=== PATIENT | female | born 1960 | race Caucasian/White ===

== ENCOUNTER → 2018-09-06 | Outpatient (CLI) | payer OTHER ==
[2018-09-06 08:14] VITALS: BP 135/81; PULSE 85; RESP 16; TEMP 94.4; BMI 29.4
--- NOTE | 2018-09-06 10:01 | P.GSHP ---
History of Present Illness H&P Date: 09/06/18 Chief Complaint: right breast cancer Latia is a 57-year-old white female who had a routine screening mammogram performed in July 2018 at [facility] [place]. On the mammogram she was noted to have spiculated 1.5 cm area in the upper outer quadrant of the right breast. This was confirmed by ultrasound and a core biopsy was obtained which revealed invasive ductal carcinoma. This is noted to be ER/PA positive and HER- 2 negative. The patient states she was unable to feel anything in this area. She has no history of any trauma to the breast and no history of any infection of the breast. The patient did have a left breast biopsy in the past which was negative for cancer and revealed scar tissue. Family history: none Hormonal History: menarche: 11 : 1, 1 child, age at 14, breast fed: yes menopause: 48 BCP: none hormones: 3 months progesterone no estrogen Past Surgical History: 1. left breast biopsy Past Medical History: 1. hypothyroid Social History: smoke: none alcohol: none drugs: none - Constitutional Constitutional: Denies chills, Denies fever - EENT Eyes: denies blurred vision, denies pain Ears: deny: decreased hearing, tinnitus Ears, nose, mouth and throat: Denies headache, Denies sore throat - Breasts Breasts: bilateral: as per HPI - Cardiovascular Cardiovascular: Denies chest pain, Denies shortness of breath - Respiratory Respiratory: Denies cough, Denies 7 - Gastrointestinal Gastrointestinal: Denies abdominal pain, Denies diarrhea, Denies nausea, Denies vomiting - Genitourinary (Female) Genitourinary: Denies dysuria, Denies hematuria - Menstruation Menstruation: Reports postmenopausal - Musculoskeletal Musculoskeletal: Denies myalgias - Integumentary Integumentary: Denies pruritus, Denies rash - Neurological Neurological: Denies numbness, Denies weakness - Psychiatric Psychiatric: Denies anxiety, Denies depression - Endocrine Comment: hypothyroid - Hematologic/Lymphatic Comment: fish oil and vitamen E - Allergic/Immunologic Comment: none Past Medical History History of Any Multi-Drug Resistant Organisms: None Reported Past Surgical History: Breast Surgery Smoking Status: Never smoker Medications and Allergies Home Medications Medication Instructions Recorded Confirmed Type Ascorbic Acid [Vitamin C] 1,000 mg PO DAILY 09/06/18 09/06/18 History Calcium Carbonate [Calcium] 600 mg PO DAILY 09/06/18 09/06/18 History Cholecalciferol [Vitamin D3] 1,000 unit PO DAILY 09/06/18 09/06/18 History Folic Acid 0.4 mg PO DAILY 09/06/18 09/06/18 History Glucosamine/MSM/Chrond/D3/Bosw 1 each PO DAILY 09/06/18 09/06/18 History [Zjlpscfvpsf-Wkswfy-UXE-D3 Cplt] L.acidoph,Paracasei, B.lactis 1 each PO DAILY 09/06/18 09/06/18 History [Probiotic] Levothyroxine Sodium 112 mcg PO DAILY 09/06/18 09/06/18 History Multivitamin [Multivitamins Adult 1 each PO DAILY 09/06/18 09/06/18 History Gummies] [place]-3 Fatty Acids/Fish Oil [Fish 1 each PO DAILY 09/06/18 09/06/18 History Oil 1,000 mg Softgel] Ubidecarenone [Co Q-10] 100 mg PO DAILY 09/06/18 09/06/18 History Vitamin E 1,000 unit PO ONCE 09/06/18 09/06/18 History Surgical - Exam Vital Signs Temp Pulse Resp BP Pulse Ox 94.4 F L 85 16 135/81 98 09/06/18 07:57 09/06/18 07:57 09/06/18 07:57 09/06/18 07:57 09/06/18 07:57 BMI 29.4 - General well developed, well nourished, no distress - Eyes normal ocular movement, no icteric - ENT no hearing loss, no congestion - Neck no masses, trachea midline - Respiratory normal respiratory effort, clear to auscultation - Cardiovascular Rhythm: regular Heart Sounds: normal: S1, S2 - Abdomen Abdomen: soft, non tender, no guarding, no rigid, no rebound - Integumentary normal turger no rash - Neurologic no disoriented, no combative - Musculoskeletal normal gait, normal posture - Psychiatric oriented to time, oriented to person, oriented to place, speech is normal, memory intact The patient is a breast examination her breasts are doubled the Right breast: Multi-positional exam no dominant masses or nodules of concern, fibrocystic changes Right axilla: No adenopathy of concern Left breast: Multi-positional exam no dominant masses or nodules of concern Left axilla: No adenopathy of concern Results Mammogram results reviewed Pathology results reviewed Assessment and Plan Assessment: Impression: 1. Right breast cancer, T1 N0 M0 ER positive PA positive HER-2/isaías negative grade 1 2. Hypothyroid Plan: 1. Right breast needle localization and lumpectomy, sentinel node biopsy, possible axillary node dissection 2. Medical management of medical problems Risk and benefits of the procedure were discussed with the patient. Surgical options including lumpectomy with radiation therapy, sentinel node biopsy possible axillary node dissection, mastectomy plus or minus reconstruction were discussed with the patient and her friend. The patient wished to proceed with a lumpectomy, sentinel node biopsy and possible axillary node dissection. She understands she will be recommended to undergo radiation therapy following the lumpectomy. The risks and benefits of the procedure were discussed with the patient including bleeding and infection reaction to the anesthetic. The risk of a positive margin requiring reexcision was also discussed. The risk of a positive sentinel node on permanent section requiring more therapy was discussed as well. The patient understands and wishes to proceed with the operative intervention. This will be scheduled in the near future. Cc: Dr. Noguera,
== END ==
LOC: WWCWWP 07:36
PROVIDERS: ATTEND Surgery
DX: Z53.9 Procedure and treatment not carried out, unspecified reason (principal)

== ENCOUNTER 2018-10-09 08:17 | Observation (INO) | payer OTHER ==
[2018-10-05 09:31] VITALS: BMI 28.6
[~2018-10-09 08:17] MED LIST: ALPRAZolam 0.5 MG TAB PO PRN; DEXAMETHASONE SOD PHOSPHATE 10 MG/ML 1 ML VIAL IV ONE; HEPARIN SODIUM,PORCINE 5,000 UNIT/ML 1 ML VIAL SQ ONE; MORPHINE SULFATE 4 MG/ML SYRINGE IV PRN; ONDANSETRON 4 MG/2 ML VIAL IVP ONE; ONDANSETRON 4 MG/2 ML VIAL IVP PRN
[2018-10-09] MEDS ORDERED: LIDOCAINE 1% 20 ML VIAL (10MG/ML) FOR IV START INTRADERMA ONE (09:09)
[2018-10-09] MEDS ORDERED: LACTATED RINGERS 1,000 ML IV ONE ×2 (09:18→14:01)
[2018-10-09] MEDS ORDERED: LIDOCAINE 1% INJ 10MG/ML (20 ML MDV) SQ ONE (10:26)
[2018-10-09] MEDS ORDERED: SODIUM BICARB 4% 5 ML VIAL (0.48 MEQ/ML) MISCELLANE ONE (10:26)
[2018-10-09] MEDS ORDERED: fentaNYL (PF) 50 MCG/ML 2 ML AMP ONE (11:47)
[2018-10-09] MEDS ORDERED: LIDOCAINE 1% INJ 10MG/ML (20 ML MDV) ONE (11:47)
[2018-10-09] MEDS ORDERED: ePHEDrine SULFATE/0.9% NACL/PF 50 MG/5 ML SYRINGE IV ONE (11:47)
[2018-10-09] MEDS ORDERED: MIDAZOLAM 2 MG/2 ML VIAL ONE (11:47)
[2018-10-09] MEDS ORDERED: PROPOFOL 10 MG/ML 20 ML VIAL IV ONE (11:47)
--- NOTE | 2018-10-09 12:13 | NM ---
EXAMINATION TYPE: NM sentinel node injection DATE OF EXAM: 10/09/2018 COMPARISON: 08/20/2018 and needle localization same day HISTORY: 57-year-old female with biopsy-proven right breast cancer TECHNIQUE AND FINDINGS: The procedure of sentinel lymph node injection was explained to the patient. The benefits, alternatives, and risks were discussed. An informed consent was then obtained. Overlying skin is cleaned with sterile alcohol. Lidocaine buffered with bicarbonate was used as anes thetic into the skin and subcutaneous tissue surrounding the nipple. Following this, 44 uCi Tc 99m T ilmanocept was injected surrounding the outer aspect of the right nipple intradermally. The patient tolerated the procedure well without any immediate complication. The patient was kept in the radiology department for short stay after the procedure and then taken to surgery for surgical p rocedure what is presumed intraoperative gamma probe will be used for sentinel lymph node detection. IMPRESSION: Right breast radiotracer injection for sentinel node localization as above.
[2018-10-09] MEDS ORDERED: LIDOCAINE (PF) 10 MG/ML 2 ML VIAL SQ ONE ×2 (12:14)
[2018-10-09] MEDS ORDERED: HEPARIN SODIUM,PORCINE 5,000 UNIT/ML 1 ML VIAL SQ ONE (12:18)
--- NOTE | 2018-10-09 12:18 | P.NAPBC ---
NAPBC Queries - NAPBC Queries Was patient's case review presented at [facility] tumor board? If no, comment.: Yes Was patient's pathology reviewed at [facility]? If no, comment.: Yes Was breast conservation surgery offered? If no, comment.: Yes Was sentinel node biopsy offered? If no, comment.: Yes Was diagnosis confirmed by percutaneous core biopsy? If no, comment.: Yes If mastectomy patient, was a preop referral to a reconstructive surgeon offered? : Yes
[2018-10-09] MEDS ORDERED: CALCIUM CARBONATE 500 MG CHEWABLE PO PRN (15:18)
[2018-10-09] MEDS ORDERED: ONDANSETRON 4 MG/2 ML VIAL IVP PRN (15:18)
[2018-10-09] MEDS ORDERED: NALOXONE 0.4 MG/ML 1 ML VIAL IV PRN (15:18)
[2018-10-09] MEDS ORDERED: HYDROmorphone 1 MG/ML 1 ML SYRINGE IV PRN (15:18)
--- NOTE | 2018-10-09 15:18 | P.OP ---
Date of Procedure: 10/09/18 Preoperative Diagnosis: Right breast cancer Postoperative Diagnosis: Right breast cancer Procedure(s) Performed: Right breast lumpectomy, methylene blue injection for sentinel node biopsy, axillary exploration with node biopsy Implants: biozorb Anesthesia: GETA Surgeon: She Regan Estimated Blood Loss (ml): 10 IV fluids (ml): 800 Pathology: other (Right breast, right axillary contents) Condition: stable Disposition: PACU Indications for Procedure: Right breast cancer Operative Findings: Right breast dense tissue, right axilla no sentinel node identified by radioactivity or methylene blue, palpable nodes noted removed and sent for frozen section Description of Procedure: Latia is a 57-year-old white female who was diagnosed with a right breast invasive ductal carcinoma on core biopsy. She opted for a lumpectomy and sentinel node biopsy possible axillary node dissection. The patient was first seen in the radiology department where needle localization of area of concern in the right breast was performed, and periareolar radioactive tracer injection was performed. The patient was brought to the operating room and following induction of anesthesia the axilla was interrogated with the neoprobe. No evidence of radioactivity was identified. Therefore 5 mL of half- strength methylene blue was injected in the periareolar area and the breast was massaged for 3 minutes. The right breast and axilla were prepped and draped in a sterile fashion. An incision was made in the right breast and carried down to the shaft of the localizing needle. Wide excision of the tissue was performed. The specimen was painted for orientation. It was radiographed and confirmation that the area of concern was removed was obtained. Prior to sending the specimen to pathology it was palpated there was concern in the anterior margin may be close so additional tissue was taken anteriorly. Posteriorly the dissection was performed onto the pectoralis major muscle. The wound was evaluated for hemostasis. After we were assured hemostasis was attained it was measured for BioSorb placement. A 3 x 3 piles are was chosen. This was placed and secured in place using a 3-0 Vicryl suture. The tissues were then closed using 3-0 Vicryl suture. The skin was closed using a 4-0 Monocryl. Following this all instruments were changed and the area of the axilla was approached. Again the neoprobe was placed in the area of the axilla and no specific area of increased radioactive activity was identified. Small incision was made and carried down to the area of the pectoralis major muscle. Following this inferiorly the axillary area was entered. No blue or radioactive lymph node was identified. The incision was enlarged to more clearly evaluate the axilla. Upon doing so a palpable node was identified which was approximately 1 cm in size. No other nodes of concern were identified. The node was removed and sent for frozen section evaluation which was benign. The tissues from the area of the axillary vein inferiorly were palpated and no suspicious nodes were noted. Intraoperative consultation with medical oncology was obtained and discussion was entertained as to whether completion dissection of the axilla versus nonaggressive dissection should be performed.. After discussion with medical oncology the consensus was that we should not do a formal completion dissection. Some of the superficial tissues from the axilla had already been removed however continued deep dissection was not performed. After we were assured that hemostasis was attained a JEFRY drain was placed. The deep tissues were closed with a 3-0 Vicryl suture. The skin was closed with 4-0 Monocryl. All instrument and sponge counts were correct at the end of the case. The patient tolerated the procedure in stable condition.
[2018-10-09] MEDS: HYDROmorphone 0.5 MG/0.5 ML SYRINGE IVP PRN ×2 (15:40→15:45)
[2018-10-09] MEDS: HEPARIN SODIUM,PORCINE 5,000 UNIT/ML 1 ML VIAL SQ SCH (17:03)
[2018-10-09] MEDS: LACTATED RINGERS 1,000 ML IV SCH (17:03)
[2018-10-09] MEDS: SODIUM CHLORIDE 0.45% 1,000 ML IV SCH (17:07)
--- NOTE | 2018-10-09 19:08 | MM ---
EXAMINATION TYPE: MG pre op needle loc RT, MG surgical specimen RT DATE OF EXAM: 10/09/2018 COMPARISON: 08/20/2018 and 08/13/2013 CLINICAL HISTORY: 57-year-old female with biopsy-proven right breast cancer referred for needle local ization and excision TECHNIQUE: Needle localization with wire placement and surgical excision of area of concern in the [facility] breast. FINDINGS: The procedure of needle localization with wire placement and than surgical excision was exp lained to the patient. Benefits, alternatives, and risks were discussed. An informed consent was th en obtained. The shortest pathway for procedure was chosen. Shortest pathway was a lateral approach. The overlyin g skin was prepped and draped in usual sterile fashion. Lidocaine buffered with bicarbonate was used as anesthetic into the skin and subcutaneous tissue up to the level of area of concern. A 7 cm need le was used. It was placed via a lateral approach under mammographic guidance. Subsequent 90 degree s mammogram show the needle to be in satisfactory position relative to the targeted area. At this po int, wire was placed and the needle was withdrawn. The wire was fixed to patient's skin. Images wer e marked for surgeon. The patient tolerated the procedure well without any immediate complication. The patient was kept in the radiology department for short stay after the procedure and then taken to surgery for surgical e xcision. The clip, wire, and spiculated asymmetry are identified in specimen mammogram. The patient was kept in hospital for short stay after the procedure and then discharged home in stable condition . IMPRESSION: Successful, uncomplicated needle localization with wire placement and surgical excision o f biopsy-proven right breast carcinoma. Full pathology results to follow.
[2018-10-09 20:21] VITALS: RESP 16; TEMP 98.9
[2018-10-09 21:26] VITALS: BP 115/79; PULSE 90
[2018-10-10] MEDS ORDERED: HEPARIN SODIUM,PORCINE 5,000 UNIT/ML 1 ML VIAL ONE (00:40)
[2018-10-10] MEDS: HEPARIN SODIUM,PORCINE 5,000 UNIT/ML 1 ML VIAL SQ SCH ×2 (04:38→09:31)
[2018-10-10] MEDS: HYDROcodone/APAP 5-325MG 1 EACH TAB PO PRN ×2 (05:26→10:18)
[2018-10-10] MEDS: LACTATED RINGERS 1,000 ML IV SCH (10:16)
[2018-10-10] MEDS: SODIUM CHLORIDE 0.45% 1,000 ML IV SCH (10:17)
--- NOTE | 2018-10-10 12:22 | P.PN ---
Subjective Progress Note Date: 10/10/18 Postop day #1 right breast lumpectomy, axillary node exploration, axillary node biopsy Latia is a 57-year-old white female who is status post right breast lumpectomy and axillary exploration with a node biopsy. The axilla did not have any radioactivity nor blue dye which traveled to a specific sentinel node and therefore the axilla was explored and a palpable node was identified. This was sent for frozen section evaluation which was negative for malignancy. Intraoperative consultation with medical oncology was obtained and it was decided not to proceed with a formal axillary dissection is no other adenopathy appeared to be suspicious. Despite this superficial tissue was also removed which will most likely contain lymph nodes. A Don-Ricardo drain was placed in the axilla. The patient was admitted for pain control and close surveillance. This morning the patient is doing well with no complaints. The drainage from the JEFRY is approximately 10 mL and is serosanguineous. The patient is pain is well controlled at this time. She is tolerating her diet without difficulty. Objective - Vital Signs Vital signs: Vital Signs Temp 98.9 F 10/09/18 20:20 Pulse 90 10/09/18 21:00 Resp 16 10/10/18 00:40 BP 115/79 10/09/18 21:00 Pulse Ox 96 10/09/18 20:20 Intake & Output 10/09/18 10/10/18 10/10/18 18:59 06:59 18:59 Intake Total 1300 1825 Output Total 10 Balance 1290 1825 Weight 75.75 kg Intake: IV 1300 Intake, IV Titration 1300 Amount Sodium Chloride 0.45% 1, 1300 000 ml @ 100 mls/hr IV . Q10H OLESYA Rx#:[id number] Oral 525 Output: Estimated Blood Loss 10 Other: # Voids 2 - Constitutional General appearance: Present: average body habitus, cooperative - EENT Eyes: Present: EOMI ENT: Present: hearing grossly normal - Neck Neck: Present: normal ROM - Respiratory Respiratory: bilateral: CTA - Cardiovascular Rhythm: regular Heart sounds: normal: S1, S2 - Integumentary Integumentary Comment(s): The patient's dressings are removed. Both the axillary and breast incisions are clean and dry with no evidence of infection There is some mild blue discoloration of breast secondary to the methylene blue injection with no evidence of any infection JEFRY output is serous in nature Assessment and Plan Assessment: Impression: 1. Postop day #1 axillary exploration, lumpectomy 2. Patient's pain is well-controlled 3. No evidence of infection 4. Axillary drainage serous in nature Plan: 1. Teach patient's family drain care 2. Discharge home to be followed by Dr. Whyte in 2 days for probable drain removal 3. Postoperative appointments with medical and radiation oncology
--- NOTE | 2018-10-10 12:25 | P.DS ---
Providers Date of admission: 10/09/18 20:58 Attending physician: She Regan Primary care physician: Physician Nonstaff Plan - Discharge Summary Discharge Rx Participant: Yes New Discharge Prescriptions: No Action Folic Acid 0.4 mg PO DAILY Ubidecarenone [Co Q-10] 100 mg PO DAILY Multivitamin [Multivitamins Adult Gummies] 1 each PO DAILY Levothyroxine Sodium 112 mcg PO DAILY L.acidoph,Paracasei, B.lactis [Probiotic] 1 each PO DAILY Glucosamine/MSM/Chrond/D3/Bosw [Nnngviyvblx-Zxhmaf-SUS-D3 Cplt] 1 each PO DAILY Vitamin E 1,000 unit PO DAILY Cholecalciferol [Vitamin D3] 1,000 unit PO DAILY [place]-3 Fatty Acids/Fish Oil [Fish Oil 1,000 mg Softgel] 1 each PO DAILY Ascorbic Acid [Vitamin C] 1,000 mg PO DAILY Calcium Carbonate [Calcium] 600 mg PO DAILY Discharge Medication List Ascorbic Acid [Vitamin C] 1,000 mg PO DAILY 09/06/18 [History] Calcium Carbonate [Calcium] 600 mg PO DAILY 09/06/18 [History] Cholecalciferol [Vitamin D3] 1,000 unit PO DAILY 09/06/18 [History] Folic Acid 0.4 mg PO DAILY 09/06/18 [History] Glucosamine/MSM/Chrond/D3/Bosw [Hbxcbxmjbxp-Gafeqd-WHB-D3 Cplt] 1 each PO DAILY 09/06/18 [History] L.acidoph,Paracasei, B.lactis [Probiotic] 1 each PO DAILY 09/06/18 [History] Levothyroxine Sodium 112 mcg PO DAILY 09/06/18 [History] Multivitamin [Multivitamins Adult Gummies] 1 each PO DAILY 09/06/18 [History] [place]-3 Fatty Acids/Fish Oil [Fish Oil 1,000 mg Softgel] 1 each PO DAILY [History] Ubidecarenone [Co Q-10] 100 mg PO DAILY 09/06/18 [History] Vitamin E 1,000 unit PO DAILY 09/06/18 [History] Follow up Appointment(s)/Referral(s): She Regan MD [STAFF PHYSICIAN] - 1-2 Days Activity/Diet/Wound Care/Special Instructions: Teaching family drain care, drain and record JEFRY output twice a day and as needed Patient may shower after [address] until seen by Dr. Whyte Discharge Disposition: HOME SELF-CARE
== END 2018-10-10 14:39 | disposition home or self-care (01) ==
LOC: OR 08:17 → 4SSUR 15:25 → OR 21:20
PROVIDERS: ADMIT Surgery; ATTEND Surgery
DX: C50.411 Malignant neoplasm of upper-outer quadrant of right female breast (principal)
CPT/HCPCS: 19301; 38525; 88342; 88331; 88307; 88341; 76098; 19281; 38792; G0378 ×2; A4648; A9520; J2250; J2001 ×2; J1644 ×2; J1100; J2405; J3010; J2704; J1170

== ENCOUNTER → 2018-10-12 | Outpatient (CLI) | payer OTHER ==
[2018-10-12 16:06] VITALS: BP 155/88; PULSE 83; RESP 18; TEMP 97.9; BMI 28.6
--- NOTE | 2018-10-12 16:18 | P.PN ---
Progress Note - Text Progress Note Date: 10/12/18 Latia is status post right breast lumpectomy and axillary exploration on . She comes in today for possible removal and of her JEFRY drain. She has no complaints at this time. JEFRY output is been minimal and is serous in nature. Physical exam: lungs: Clear Heart: Regular rate and rhythm Incision: Breast and axilla clean and dry Impression: Patient doing well postop day #3 lumpectomy and axillary exploration /sampling Plan: 1. Follow up next week
== END ==
LOC: WWCWWP 15:31
PROVIDERS: ATTEND Surgery
DX: Z53.9 Procedure and treatment not carried out, unspecified reason (principal)

== ENCOUNTER → 2018-10-18 | Outpatient (CLI) | payer OTHER ==
[2018-10-18 15:40] VITALS: BP 134/67; PULSE 87; RESP 16; TEMP 97.5; BMI 28.8
--- NOTE | 2018-10-18 16:08 | P.PN ---
Subjective Progress Note Date: 10/18/18 Principal diagnosis: right breast cancer Latia is a 57-year-old white female with a T1 N0 M0 grade 1 ER positive NE positive HER-2/isaías negative right breast cancer. The patient underwent a right breast lumpectomy and axillary node biopsy. On the lumpectomy specimen the pathology revealed that the margins were clear for invasive ductal carcinoma. DCIS was within 1.6 mm focally at the blue-green inked margin. Additional anterior margin had been taken was negative for cancer or carcinoma in situ. The patient has no complaints related to the surgery. Objective - Vital Signs Vital signs: Vital Signs Temp 97.5 F L 10/18/18 15:32 Pulse 87 10/18/18 15:32 Resp 16 10/18/18 15:32 BP 134/67 10/18/18 15:32 Pulse Ox Intake & Output 10/17/18 10/18/18 10/18/18 18:59 06:59 18:59 Weight 76.204 kg - Constitutional General appearance: Present: average body habitus - EENT Eyes: Present: EOMI ENT: Present: hearing grossly normal - Respiratory Respiratory: bilateral: CTA - Cardiovascular Rhythm: regular - Integumentary Integumentary Comment(s): Incision clean and dry right breast Incision clean and dry right axilla Assessment and Plan Assessment: Impression: 1. Patient status post right breast lumpectomy with axillary node sampling 2. Patient doing well with no complaints Plan: 1. Represent case at tumor board is DCIS was within 1.6 mm focally of anterior/ inferior margin, please note Anterior margin was obtained with no invasive or ductal carcinoma in situ present 2. appointment with medical oncology 3. Appointment with radiation oncology 4. Follow up here in 3 months Cc: Dr. Noguera, Dr. Salazar
== END ==
LOC: WWCWWP 15:23
PROVIDERS: ATTEND Surgery
DX: Z53.9 Procedure and treatment not carried out, unspecified reason (principal)

== ENCOUNTER → 2019-01-10 | Outpatient (CLI) | payer OTHER ==
[2019-01-10 11:02] VITALS: BP 138/86; PULSE 74; RESP 16; TEMP 97.9; BMI 28.8
--- NOTE | 2019-01-10 11:15 | P.PN ---
Subjective Progress Note Date: 01/10/19 Principal diagnosis: right breast cancer Latia is a 57-year-old white female who is status post right breast lumpectomy with axillary node biopsy on 1818. This was 4 at T1 and 0 M0 ER positive. A positive HER-2/isaías negative grade 1 breast cancer. There was an invasive ductal carcinoma. The patient has finished her radiation therapy and has recently started anastrozole. She has some intermittent shooting discomfort in her breast but this isn't not last for any period of time. She has no other complaints at this time. Her Oncotype DX was 15 and she was told that she did not need any chemotherapy. The patient's last mammogram was admitted in August 2018. Family History: negative Hormonal history: Menarche: 11 Pregnancies: 1, 1 child, age of 14, breast fed: Yes Menopause: 48 control pills: Negative Hormones: 3 months progesterone never used estrogen is now on anastrozole Past surgical history: Left breast lumpectomy with axillary node biopsy Past medical history hypothyroidism Social history: Smoking: Negative Alcohol: Negative Drugs: Negative Review of systems: HEENT: Negative Lungs: Heart: Negative GI: Negative : Negative Musculoskeletal: Negative Psychiatric: Negative Breasts: As above Objective - Vital Signs Vital signs: Vital Signs Temp 97.9 F 01/10/19 10:58 Pulse 74 01/10/19 10:58 Resp 16 01/10/19 10:58 BP 138/86 01/10/19 10:58 Pulse Ox 97 01/10/19 10:58 - Constitutional General appearance: Present: average body habitus - EENT Eyes: Present: EOMI ENT: Present: hearing grossly normal - Neck Neck: Present: normal ROM - Respiratory Respiratory: bilateral: CTA - Cardiovascular Rhythm: regular Heart sounds: normal: S1, S2 - Gastrointestinal General gastrointestinal: Present: soft - Integumentary Integumentary: Present: normal turgor - Musculoskeletal Musculoskeletal: Present: gait normal - Psychiatric Psychiatric: Present: A&O x's 3, appropriate affect, intact judgment & insight - Additional findings Additional findings: breast exam: Right breast: Multi-positional exam no dominant masses or nodules of concern, fibrocystic changes, radiation changes of the skin and of the tissue, scar tissue related to prior lumpectomy, right slightly smaller than the left breast Right axilla: No adenopathy of concern incision clean and dry and well-healed Left breast: Multiple positional exam no dominant masses or nodules of concern, Left axilla: No adenopathy of concern Assessment and Plan Assessment: Impression: 1. Right breast stage IA breast cancer status post lumpectomy, sentinel node biopsy, radiation therapy 2. Patient presently on anastrozole 3. No evidence of recurrent disease 4. Skin changes related to radiation therapy 5. hypothyroid Plan: 1. Right breast mammogram 6 months from completion of radiation therapy which would be June 2. Continue anastrozole and follow with Dr. Noguera 3. Follow-up here in 4 months 4. Medical management of medical conditions Cc:
== END ==
LOC: WWCWWP 10:39
PROVIDERS: ATTEND Surgery
DX: Z53.9 Procedure and treatment not carried out, unspecified reason (principal)

== ENCOUNTER → 2019-07-04 | Outpatient (CLI) | payer OTHER ==
--- NOTE | 2019-07-04 10:18 | BD ---
EXAMINATION TYPE: Axial Bone Density DATE OF EXAM: 07/04/2019 COMPARISON: NONE CLINICAL HISTORY: N 95.1 Height: 63 Weight: 163.3 FRAX RISK QUESTIONS: Alcohol (3 or more units per day): no Family History (Parent hip fracture): no Glucocorticoids (More than 3mos): no (Ex: prednisone, prednisolone, methylprednisolone, dexamethasone, and hydrocortisone). History of Fracture in Adulthood: no Secondary Osteoporosis: 1. Type 1 Diabetes: no 2. Hyperthyroidism: no 3. Menopause before 45: no 4. Malnutrition: no 5. Chronic liver disease: no Rheumatoid Arthritis: no Current Tobacco Use: no RISK FACTORS HISTORY OF: Family History of Osteoporosis: yes Active: yes Diet low in dairy products/other sources of calcium: yes Postmenopausal woman: age 47 Lost more than 2 inches in height since high school: no MEDICATIONS: Arimidex, Thyroid Medications: levothyroxine How Lon years Additional History: breast cancer 2018/ radiation treatment EXAM MEASUREMENTS: Bone mineral densitometry was performed using the [employer] System. Bone mineral density as measured about the Lumbar spine is: ----- L1-L4(G/cm2): 1.371 T Score Values are as follows: ----- L2: 0.8 ----- L3: 2.8 ----- L4: 2.6 ----- L1-L4: 1.6 Bone mineral density : baseline Bone mineral density about the R hip (g/cm2): 1.089 Bone mineral density about the L hip (g/cm2): 1.060 T Score values are as follows: -----R Neck: 0.4 -----L Neck: 0.2 -----R Total: 1.1 -----L Total: 0.9 Bone mineral density : baseline IMPRESSION: Normal (Values between +1 and -1 indicate normal bone mass). Consider repeating this study in 5 year s or sooner if there is some new clinical indication. NOTE: T-SCORE=SD OF THE YOUNG ADULT MEAN.
== END | disposition home or self-care (01) ==
LOC: RADBDWWP 09:15
PROVIDERS: ATTEND Internal Medicine Hematology & Oncology
DX: C50.411 Malignant neoplasm of upper-outer quadrant of right female breast (principal); N95.1 Menopausal and female climacteric states
CPT/HCPCS: 77080

== ENCOUNTER → 2019-07-04 | Outpatient (CLI) | payer OTHER ==
--- NOTE | 2019-07-04 13:21 | MM ---
Reason for exam: additional evaluation requested from prior study. Last mammogram was performed 10 months ago. History: Patient is postmenopausal and has history of breast cancer at age 57. Malignant MG pre op needle loc RT of the right breast, October 09, 2018. Lumpectomy of the right breast, October 09, 2018. Physical Findings: Nurse did not find any significant physical abnormalities on exam. MG 3D Diag Mammo W/Cad ANGEL Bilateral CC, MLO, and XCCL view(s) were taken. Prior study comparison: August 20, 2018, mammogram. August 13, 2018, mammogram. July 21, 2018, mammogram. The breast tissue is extremely dense which could obscure a lesion on mammography. There are similar appearing bilateral calcifications. Post therapy change on the right. Left upper outer quadrant middle depth focal asymmetry, although improved from 2018, precautionary ultrasound will be performed. Left excisional known. These results were verbally communicated with the patient and result sheet given to the patient on 07/04/19. ASSESSMENT: Incomplete: need additional imaging evaluation, BI-RAD 0 RECOMMENDATION: Ultrasound of the left breast. (upper outer quadrant)
--- NOTE | 2019-07-04 13:28 | USB ---
Reason for exam: additional evaluation requested from abnormal screening. History: Patient is postmenopausal and has history of breast cancer at age 57. Malignant MG pre op needle loc RT of the right breast, October 09, 2018. Lumpectomy of the right breast, October 09, 2018. US Breast Limited LT Left limited breast ultrasound including focal area of concern, retroareolar and axilla demonstrates a 0.4 x 0.3 x 0.4cm cystic lesion at 12 o'clock, a 0.4 x 0.3 x 0.3cm likely small cyst in dense tissue at 3 o'clock and a 0.3 x 0.3 x 0.4cm lesion a 3 o'clock for which a biopsy is recommended. These results were verbally communicated with the patient and result sheet given to the patient on 07/04/19. ASSESSMENT: Suspicious, BI-RAD 4 RECOMMENDATION: Ultrasound core biopsy of the left breast. (3 o'clock) Called with mammographic findings and has scheduled an appointment for the patient for 07/18/19 at 2:[address] Regan. Biopsy scheduled for 07/10/19 at 2:00. PRELIMINARY REPORT CALLED AND FAXED TO DR. REGAN ON 07/04/19.
== END | disposition home or self-care (01) ==
LOC: RADMAMWWP 09:12
PROVIDERS: ATTEND Surgery
DX: Z08 Encounter for follow-up examination after completed treatment for malignant neoplasm (principal); Z85.3 Personal history of malignant neoplasm of breast
CPT/HCPCS: 77066; 76642; G0279; 77062

== ENCOUNTER → 2019-07-10 | Day surgery (SDC) | payer OTHER ==
[2019-07-10 13:30] VITALS: RESP 16; BMI 28.2
[2019-07-10 14:51] VITALS: BP 124/82; PULSE 87; TEMP 98.3
--- NOTE | 2019-07-10 15:03 | USB ---
EXAMINATION TYPE: US biopsy breast VAD LT, MG diagnostic mammo LT wo CAD DATE OF EXAM: 07/10/2019 CLINICAL HISTORY: R92.8 Abnormal Mammogram. TECHNIQUE: Ultrasound guided core biopsy of left breast. COMPARISON: Left breast ultrasound dated 07/04/2019 FINDINGS: The procedure of ultrasound guided core biopsy was explained to the patient. Benefits, alternatives, and risks were discussed. An informed consent was then obtained. Preprocedural timeout was performed. The patient was placed in supine positioning for imaging and for the procedure. The overlying skin was prepped and draped in usual sterile fashion. 10 cc of 1% lidocaine was used as anesthetic into the skin and subcutaneous tissue and 10 cc of 1% lidocaine with epinephrine was utilized to anesthetize the deeper subcutaneous tissues at the site of biopsy as there was an adjacent vessel that would be unavoidable given the small size of the mass. Lidocaine was given up to the 4 mm hypoechoic lesion at the 3:00 position in the left breast, which was sampled. Under ultrasound guidance, a 12-gauge vacuum assisted biopsy gun device was used to obtain 4 core samples. Following this, a coil-shaped biopsy marker was left at the site of biopsy. Biopsy marker appears appropriately placed on the post procedure mammogram. The patient tolerated the procedure well without any immediate complication. The patient was kept in the radiology department for short stay after the procedure and then discharged home in stable condition. IMPRESSION: Successful, uncomplicated ultrasound guided core biopsy of a 4 mm mass at the 3:00 position in the left breast, full pathology results to follow. Pathology Results: Benign LEFT BREAST AT THREE O'CLOCK POSITION, NEEDLE CORE BIOPSIES: Fragments of benign breast parenchyma showing fibrocystic changes. Recommendation Follow up mammogram and ultrasound of the left breast in 6 months. Mass was difficult to reproduce the day of biopsy and after identification appeared likely as a complicated cyst. MTDD
== END ==
LOC: RADUSWWP 13:13
PROVIDERS: ATTEND Surgery
DX: N60.12 Diffuse cystic mastopathy of left breast (principal); R92.8 Other abnormal and inconclusive findings on diagnostic imaging of breast
CPT/HCPCS: 88305; 77065; 19083; A4648; J2001

== ENCOUNTER → 2019-07-18 | Outpatient (CLI) | payer OTHER ==
[2019-07-18 14:51] VITALS: BP 136/84; RESP 18; TEMP 98; BMI 28.8
--- NOTE | 2019-07-18 15:10 | P.PN ---
Subjective Progress Note Date: 07/18/19 Principal diagnosis: right breast cancer Latia is a 57-year-old white female who is status post right breast lumpectomy with axillary node biopsy on 1818. This was Stage 1A T1 N0 M0 ER positive, [place] positive HER-2/isaías negative grade 1 breast cancer. There was an invasive ductal carcinoma. The patient has finished her radiation therapy and has recently started anastrozole. She had some intermittent shooting discomfort in her breast but this is not present at this time. She has no other complaints at this time. Her Oncotype DX was 15 and she was told that she did not need any chemotherapy. The patient's last mammogram was on 07-04-19, after which was recommended she undergo an ultrasound of the left breast. This was performed in a 4 x 3 mm cystic lesion at 12:00 was noted. Additionally a 0.4 x 0.3 small cysts and dense tissue at 3:00 was noted, and a 0.3-0.4 lesion at 3:00 for which biopsy was recommended was noted. Ultrasound core biopsy at the 3:00 lesion was performed. Pathology was consistent with fibrocystic disease. The patient has no complaints following the biopsy. Family History: negative Hormonal history: Menarche: 11 Pregnancies: 1, 1 child, age of 14, breast fed: Yes Menopause: 48 control pills: Negative Hormones: 3 months progesterone never used estrogen is now on anastrozole Past surgical history: Left breast lumpectomy with axillary node biopsy Past medical history hypothyroidism Social history: Smoking: Negative Alcohol: Negative Drugs: Negative Review of systems: HEENT: Negative Lungs:none Heart: Negative GI: Negative : Negative Musculoskeletal: Negative Psychiatric: Negative Breasts: As above Patient is on anastrozole Objective - Vital Signs Vital signs: Vital Signs Temp 98.0 F 07/18/19 14:47 Pulse Resp 18 07/18/19 14:47 BP 136/84 07/18/19 14:47 Pulse Ox Intake & Output 07/17/19 07/18/19 07/18/19 18:59 06:59 18:59 Weight 73.936 kg - Exam BMI 28.9 - Constitutional General appearance: Present: average body habitus - EENT Eyes: Present: EOMI ENT: Present: hearing grossly normal - Neck Neck: Present: normal ROM - Respiratory Respiratory: bilateral: CTA - Cardiovascular Rhythm: regular Heart sounds: normal: S1, S2 - Gastrointestinal General gastrointestinal: Present: soft - Integumentary Integumentary: Present: normal turgor - Musculoskeletal Musculoskeletal: Present: gait normal - Psychiatric Psychiatric: Present: A&O x's 3, appropriate affect, intact judgment & insight - Additional findings Additional findings: breast exam: Right breast: Postop changes, multiple positional exam no dominant masses or nodules of concern, skin thickening related to radiation Right axilla: No adenopathy of concern Left breast: Multi-positional exam no dominant masses or nodules of concern, fibrocystic changes, we are area of the recent core biopsy site nodularity felt to be related to hematoma, mild ecchymosis Left axilla: No adenopathy of concern BRA size 36DD Right breast is approximately 25% smaller than the left breast, at times it makes it difficult for the patient to of fit in clothes Patient complains of lower back pain at times Assessment and Plan Assessment: Impression: 1. Patient status post right breast lumpectomy/radiation therapy for stage IA breast cancer 2. No evidence of recurrent cancer 3. Status post recent left breast ultrasound core biopsy benign 3. Asymmetry of the breast 4. Fibrocystic changes 5.hypothyroid 6. Ocular migraines Plan: 1. left breast mammogram and ultrasound in 6 months 2. physician exam in 4 months 3. bilateral mammogram in 2019 4. Medical management of medical conditions CC: DR. Latif
== END ==
LOC: WWCWWP 14:34
PROVIDERS: ATTEND Surgery
DX: Z53.9 Procedure and treatment not carried out, unspecified reason (principal)

== ENCOUNTER → 2020-06-30 | Outpatient (CLI) | payer OTHER ==
[2020-06-30 10:09] VITALS: BP 147/96; PULSE 78; RESP 18; TEMP 98
--- NOTE | 2020-06-30 11:02 | P.HPOB ---
History of Present Illness H&P Date: 06/30/20 Chief Complaint: The patient is here for her routine gynecologic exam. This is a 59-year-old with an LMP of 2009. The patient is here to establish with this office. It has been about 2 years since her last pelvic exam. She is without gynecologic complaints and denies any postmenopausal bleeding. Review of Systems She believes she has gained about 6 pounds over the past year. She denies respiratory, cardiac, or GI problems. Past Medical History Past Medical History: Cancer, Thyroid Disorder Additional Past Medical History / Comment(s): Right breast cancer 2018 status post lumpectomy and radiation therapy. Hypothyroidism. PAST [employer] HISTORY: She has no history of STDs. History of Any Multi-Drug Resistant Organisms: None Reported Past Surgical History: Breast Surgery Additional Past Surgical History / Comment(s): Right breast lumpectomy 2018. Benign left breast biopsy. Colonoscopy 2019(next after 5yr). Past Anesthesia/Blood Transfusion Reactions: No Reported Reaction Additional Past Anesthesia/Blood Transfusion Reaction / Comment(s): takes along time to awaken from anesthesia Past Psychological History: No Psychological Hx Reported Smoking Status: Never smoker Past Alcohol Use History: Rare (Less than one per year) Past Drug Use History: None Reported Additional History: She is and has been with her current partner since 2000 and a live together. She is sexually active. She does show dogs. - Past Family History Mother Additional Family Medical History / Comment(s): Heart disease. No family history of cancer of the breast, uterus, ovaries, or colon. Father Family Medical History: Hypertension Medications and Allergies Home Medications Medication Instructions Recorded Confirmed Type Ascorbic Acid [Vitamin C] 1,000 mg PO DAILY 09/06/18 06/30/20 History Calcium Carbonate [Calcium] 600 mg PO DAILY 09/06/18 06/30/20 History Cholecalciferol [Vitamin D3] 2,000 unit PO DAILY 09/06/18 06/30/20 History Folic Acid 0.4 mg PO DAILY 09/06/18 06/30/20 History Glucosamine/MSM/Chrond/D3/Bosw 1 each PO DAILY 09/06/18 06/30/20 History [Qovucebjhtv-Frkwlc-IMM-D3 Cplt] L.acidoph,Paracasei, B.lactis 1 each PO DAILY 09/06/18 06/30/20 History [Probiotic] Levothyroxine Sodium 112 mcg PO DAILY 09/06/18 06/30/20 History Multivitamin [Multivitamins Adult 1 each PO DAILY 09/06/18 06/30/20 History Gummies] [place]-3 Fatty Acids/Fish Oil [Fish 1 each PO DAILY 09/06/18 06/30/20 History Oil 1,000 mg Softgel] Ubidecarenone [Co Q-10] 100 mg PO DAILY 09/06/18 06/30/20 History Vitamin E 1,000 unit PO DAILY 09/06/18 06/30/20 History Anastrozole [Arimidex] 1 mg PO DAILY 01/10/19 06/30/20 History Allergies Allergy/AdvReac Type Severity Reaction Status Date / Time No Known Allergies Allergy Verified 06/30/20 10:04 Exam Vital Signs Temp Pulse Resp BP Pulse Ox 06/30/20 10:04 98.0 F 78 18 147/96 99 Intake and Output 06/29/20 06/30/20 06/30/20 22:59 06:59 14:59 Other: Weight 77.564 kg Height 5 feet 5 inches, weight 171 pounds, BMI 28.5. This is a well-developed well-nourished white female who is alert and oriented times 3 in no acute distress. HEENT: Within normal limits. NECK: Supple without mass or thyromegaly. CHEST AND LUNGS: Clear to auscultation. HEART: Regular rate and rhythm. BREASTS: Are without mass or discharge. There is a scar at the 10 o'clock position of the right breast consistent with her previous lumpectomy. This is well-healed. AXILLARY EXAM: Negative for adenopathy. BACK: Negative for CVA tenderness. ABDOMEN: Soft, nontender, without palpable masses. PELVIC EXAM: Normal external genitalia with mild atrophy. Cervix and vagina appear normal with mild atrophy. There is no unusual discharge. There is no evidence of prolapse. The uterus is midposition, nongravid size and nontender. There are no palpable adnexal masses or tenderness. RECTAL EXAM: Rectovaginal exam is negative for mass or tenderness and is negative for occult blood. EXTREMITIES: Nontender. IMPRESSION: 1. 59-year-old menopausal female with normal gynecologic exam. 2. History of right breast cancer status post lumpectomy and radiation therapy with no evidence of recurrence at this time. 3. Elevated blood pressure. PLAN: 1. Pap smear was performed. 2. Self breast awareness was discussed with the patient. 3. Mammogram as ordered by her oncologist is scheduled for 07/14/2020. She does have an order slip for this from her oncologist. 4. We have discussed her elevated blood pressure today. She does have the ability to check her own blood pressure at home. She will check her blood pressure on a regular basis and follow up with her PCP for blood pressure elevations. 5. Osteoporosis prevention was discussed. I have stressed the importance of adequate calcium, vitamin D and regular exercise. Recommended amounts of calcium and vitamin D were also discussed. Bone density testing was done on 07/04/2019 and was normal. She will repeat this in 5 years or as directed by her oncologist who ordered the last one. 6. She was advised to return in one year for her annual well woman exam.
--- NOTE | 2020-07-08 13:55 | P.PN ---
Progress Note - Text Progress Note Date: 07/08/20 OUTPATIENT FOLLOW-UP NOTE TEST(S)/RESULTS: Pap smear from 06/30/2020 was negative. METHOD OF NOTIFICATION: She was notified by phone. PATIENT COMMENTS: She is happy to hear this result. DIAGNOSIS: Negative Pap smear DISCUSSION: Mammogram will be done later this month. PLAN: She was advised to return in one year for her annual well woman exam.
== END | disposition home or self-care (01) ==
LOC: WWCWWP 09:49
PROVIDERS: ATTEND Obstetrics & Gynecology
DX: Z53.9 Procedure and treatment not carried out, unspecified reason (principal)

== ENCOUNTER → 2020-07-14 | Outpatient (CLI) | payer OTHER ==
--- NOTE | 2020-07-14 10:30 | MM ---
Reason for exam: additional evaluation requested from prior study. Last mammogram was performed 1 year ago. History: Patient is postmenopausal and has history of breast cancer at age 57. Benign US biopsy breast VAD LT of the left breast, July 10, 2019. Malignant MG pre op needle loc RT of the right breast, October 09, 2018. Lumpectomy of the right breast, October 09, 2018. Physical Findings: Nurse did not find any significant physical abnormalities on exam. MG 3D Diag Mammo W/Cad ANGEL Bilateral CC and MLO view(s) were taken. Prior study comparison: July 10, 2019, left breast MG diagnostic mammo LT wo CAD. July 04, 2019, bilateral MG 3d diag mammo w/cad ANGEL. The breast tissue is heterogeneously dense. This may lower the sensitivity of mammography. Stable benign calcifications. There is chronic nodularity bilaterally. Stable post lumpectomy changes right breast. No significant new findings when compared with previous films. These results were verbally communicated with the patient and result sheet given to the patient on 07/14/20. ASSESSMENT: Benign, BI-RAD 2 RECOMMENDATION: Follow-up diagnostic mammogram of both breasts in 1 year.
== END | disposition home or self-care (01) ==
LOC: RADMAMWWP 09:41
PROVIDERS: ATTEND Surgery
DX: Z08 Encounter for follow-up examination after completed treatment for malignant neoplasm (principal); Z85.3 Personal history of malignant neoplasm of breast
CPT/HCPCS: 77066; G0279; 77062

== ENCOUNTER → 2020-07-17 | Outpatient (CLI) | payer OTHER ==
[2020-07-17 10:11] VITALS: BP 131/86; PULSE 79; RESP 18; TEMP 97.9
--- NOTE | 2020-07-17 10:57 | P.PN ---
Subjective Progress Note Date: 07/17/20 Principal diagnosis: stage 1A right breast cancer surveillance Stage 1A right breast cancer surveillance right breast cancer Latia is a 59-year-old white female who is status post right breast lumpectomy with axillary node biopsy on 1818. This was Stage 1A T1 N0 M0 ER positive, [place] positive HER-2/isaías negative grade 1 breast cancer. There was an invasive ductal carcinoma. The patient finished her radiation therapy and started anastrozole. She is not complaining of any pain masses lumps or nodules in her breasts. She has no longer got any shooting pain in her breast. She has no other complaints at this time. Her Oncotype DX was 15 and she was told that she did not need any chemotherapy. The patient had a mammogram on 07-04-19, after which was recommended she undergo an ultrasound of the left breast. This was performed in a 4 x 3 mm cystic lesion at 12:00 was noted. Additionally a 0.4 x 0.3 small cysts and dense tissue at 3:00 was noted, and a 0.3-0.4 lesion at 3:00 for which biopsy was recommended was noted. Ultrasound core biopsy at the 3:00 lesion was performed. Pathology was consistent with fibrocystic disease. The patient had no complaints following the biopsy. She had a bilateral mammogram on 07-14-20 which was benign BIRAD 2. Patient notes she has asymmetry of the breast related to her prior right breast lumpectomy, making it difficult at times to find close to fit well. Family History: negative Hormonal history: Menarche: 11 Pregnancies: 1, 1 child, age of 14, breast fed: Yes Menopause: 48 control pills: Negative Hormones: 3 months progesterone never used estrogen is now on anastrozole Past surgical history: Left breast lumpectomy with axillary node biopsy core biopsy of hte left bresat benign Past medical history hypothyroidism Social history: Smoking: Negative Alcohol: Negative Drugs: Negative Review of systems: HEENT: Negative Lungs:none Heart: Negative GI: Negative : Negative Musculoskeletal: Negative Psychiatric: Negative Breasts: As above Patient is on anastrozole Objective - Vital Signs Vital signs: Vital Signs Temp 97.9 F 07/17/20 10:07 Pulse 79 07/17/20 10:07 Resp 18 07/17/20 10:07 BP 131/86 07/17/20 10:07 Pulse Ox 98 07/17/20 10:07 Intake & Output 07/16/20 07/17/20 07/17/20 18:59 06:59 18:59 Weight 75.296 kg - Exam BMI 28.5 - Constitutional Constitutional Comment(s): BMI 28.5 General appearance: Present: average body habitus - EENT Eyes: Present: EOMI ENT: Present: hearing grossly normal - Neck Neck: Present: normal ROM - Respiratory Respiratory: bilateral: CTA - Cardiovascular Rhythm: regular Heart sounds: normal: S1, S2 - Gastrointestinal General gastrointestinal: Present: normal bowel sounds, soft - Integumentary Integumentary: Present: normal turgor - Musculoskeletal Musculoskeletal: Present: gait normal - Psychiatric Psychiatric: Present: A&O x's 3, appropriate affect, intact judgment & insight - Additional findings Additional findings: breast exam: BRA: 38DDD inspection: right breast grade 2 ptosis, left breast grade 3 ptosis, left breast larger than right breast Palpation: Right breast: Fibrocystic changes, changes status post radiation and scar from prior lumpectomy no dominant masses or nodules of concern Right axilla: No adenopathy of concern Left breast: Fibrocystic changes, no dominant masses or nodules of concern Left axilla: No adenopathy of concern Assessment and Plan Assessment: Impression: 1. Patient status post right breast lumpectomy and radiation therapy for a stage IA right breast cancer, no evidence of recurrent cancer 2. Recent bilateral mammograms 5 minutes to no evidence of disease 3. Asymmetry of the breast resulting in difficulty finding close. Plan: 1. Repeat bilateral mammogram in 1 year 2. Continue anastrozole continue follow-up with Dr. Noguera 3. Patient is going to consider whether she would like to have a Elliott pattern reduction of the left breast, we have discussed proceeding plastic surgery and at this time she is not interested in seeing plastic surgery Risks and benefits of Ortiz pattern reduction mammoplasty discussed. The patient was marked to show a little the incision sites with local like and she is going to consider this CC: Dr. Latif encounter 25 minutes, > 50% of time in planning and counselling
== END | disposition home or self-care (01) ==
LOC: WWCWWP 09:43
PROVIDERS: ATTEND Surgery
DX: Z53.9 Procedure and treatment not carried out, unspecified reason (principal)

== ENCOUNTER 2021-01-17 11:09 | Emergency (ER) | payer OTHER ==
[2021-01-17] MEDS ORDERED: SODIUM CHLORIDE 0.9% 1,000 ML IV STA (11:40)
[2021-01-17 12:01] LABS: Basophils % (A) 1 %; Eosinophils % (A) 0 %; HCT 41.7 % (34.0-46.0); HGB 13.4 gm/dL (11.4-16.0); Lymphocytes # (A) 0.8 k/uL (1.0-4.8); Lymphocytes % (A) 10 %; MCH 28.4 pg (25.0-35.0); MCHC 32.2 g/dL (31.0-37.0); MCV 88.3 fL (80.0-100.0); Mean Platelet Volume 7.5; Monocytes # (A) 0.5 k/uL (0-1.0); Monocytes % (A) 5 %; Neutrophils # (A) 6.8 k/uL (1.3-7.7); Neutrophils % (A) 83 %; Platelet Count 328 k/uL (150-450); RBC 4.72 m/uL (3.80-5.40); RDW 12.8 % (11.5-15.5); WBC 8.2 k/uL (3.8-10.6)
--- NOTE | 2021-01-17 12:04 | ED ---
General Adult HPI - General Chief complaint: Weakness Stated complaint: weak/diarrhea Time Seen by Provider: 01/17/21 11:30 Source: patient, RN notes reviewed, old records reviewed Mode of arrival: ambulatory Limitations: no limitations - History of Present Illness Initial comments: 60-year-old female presenting for evaluation of cough cold symptoms, diarrhea, generalize fatigue. Patient states that she initially had mild nasal congestion cold symptoms approximately 10 days ago but 4 days ago she began feeling somewhat short of breath. She had increased fatigue and nausea as well as diarrhea. No vomiting. She had low-grade temperature as well. She is otherwise quite healthy. - Related Data Home Medications Medication Instructions Recorded Confirmed Ascorbic Acid [Vitamin C] 1,000 mg PO HS 09/06/18 01/17/21 Cholecalciferol [Vitamin D3] 50 mcg PO DAILY 09/06/18 01/17/21 Levothyroxine Sodium 112 mcg PO DAILY 09/06/18 01/17/21 Anastrozole [Arimidex] 1 mg PO DAILY 01/10/19 01/17/21 Multivitamins, Thera [Multivitamin 1 tab PO HS 01/17/21 01/17/21 (formulary)] Previous Rx's Medication Instructions Recorded Dexamethasone [Decadron] 6 mg PO DAILY #10 tablet 01/17/21 Potassium Chloride ER [K-Dur 20] 20 meq PO DAILY 7 Days #7 tab 01/17/21 Allergies Allergy/AdvReac Type Severity Reaction Status Date / Time No Known Allergies Allergy Verified 01/17/21 12:17 Review of Systems ROS Statement: Those systems with pertinent positive or pertinent negative responses have been documented in the HPI. ROS Other: All systems not noted in ROS Statement are negative. Past Medical History Past Medical History: Cancer, Thyroid Disorder Additional Past Medical History / Comment(s): Right breast cancer 2018 status post lumpectomy and radiation therapy. Hypothyroidism. 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 History of Any Multi-Drug Resistant Organisms: None Reported Past Surgical History: Breast Surgery Additional Past Surgical History / Comment(s): Right breast lumpectomy 2018. Benign left breast biopsy. Colonoscopy 2019(next after 5yr). Past Anesthesia/Blood Transfusion Reactions: No Reported Reaction Additional Past Anesthesia/Blood Transfusion Reaction / Comment(s): takes along time to awaken from anesthesia Past Psychological History: No Psychological Hx Reported Smoking Status: Never smoker Past Alcohol Use History: Rare Past Drug Use History: None Reported - Past Family History Mother Additional Family Medical History / Comment(s): Heart disease. No family history of cancer of the breast, uterus, ovaries, or colon. Father Family Medical History: Hypertension General Exam Limitations: no limitations General appearance: alert, in no apparent distress Head exam: Present: atraumatic, normocephalic Eye exam: Present: normal appearance, PERRL ENT exam: Present: normal exam Neck exam: Present: normal inspection. Absent: tenderness, meningismus Respiratory exam: Present: rales Cardiovascular Exam: Present: regular rate, normal rhythm GI/Abdominal exam: Present: soft. Absent: distended, tenderness, guarding Extremities exam: Present: normal inspection, normal capillary refill. Absent: pedal edema, calf tenderness Neurological exam: Present: alert, oriented X3, CN II-XII intact. Absent: motor sensory deficit Psychiatric exam: Present: normal affect, normal mood Skin exam: Present: warm, dry, intact. Absent: cyanosis, diaphoretic Course Vital Signs 01/17/21 11:25 Temperature 98.7 F Pulse Rate 94 Respiratory 18 Rate Blood Pressure 172/88 O2 Sat by Pulse 97 Oximetry EKG Findings - EKG Comments: EKG Findings:: EKG: Normal sinus rhythm, rate of 89, DE interval 138, QRS duration 94, QTC 474, no ST segment elevation Medical Decision Making - Medical Decision Making 60-year-old female with symptoms concerning for coronavirus. Patient does test positive for coronavirus. There is no respiratory distress, no hypoxia. X-ray showed bilateral infiltrate. She has normal CBC, CMP shows a potassium of 2.7 which is replaced with both oral and IV potassium. The patient does not qualify for monoclonal antibodies. She is prescribed steroids, she will continue to take vitamin C, zinc, and vitamin D at home. She is also prescribed potassium supplementation and will have her level redrawn in 1-2 weeks. She'll follow-up with her primary care physician. She's given strict return parameters when to return to emergency department. - Lab Data Result diagrams: 01/17/21 11:47 01/17/21 11:47 Lab Results 01/17/21 01/17/21 01/17/21 Range/Units 11:47 11:47 11:47 WBC 8.2 (3.8-10.6) k/uL RBC 4.72 (3.80-5.40) m/uL Hgb 13.4 (11.4-16.0) gm/dL Hct 41.7 (34.0-46.0) % MCV 88.3 (80.0-100.0) fL MCH 28.4 (25.0-35.0) pg MCHC 32.2 (31.0-37.0) g/dL RDW 12.8 (11.5-15.5) % Plt Count 328 (150-450) k/uL MPV 7.5 Neutrophils % 83 % Lymphocytes % 10 % Monocytes % 5 % Eosinophils % 0 % Basophils % 1 % Neutrophils # 6.8 (1.3-7.7) k/uL Lymphocytes # 0.8 L (1.0-4.8) k/uL Monocytes # 0.5 (0-1.0) k/uL Eosinophils # 0.0 (0-0.7) k/uL Basophils # 0.0 (0-0.2) k/uL Sodium 141 (137-145) mmol/L Potassium 2.7 L* (3.5-5.1) mmol/L Chloride 101 (98-107) mmol/L Carbon Dioxide 32 H (22-30) mmol/L Anion Gap 8 mmol/L BUN 11 (7-17) mg/dL Creatinine 0.51 L (0.52-1.04) mg/dL Est GFR (CKD-EPI)AfAm >90 (>60 ml/min/1.73 sqM) Est GFR (CKD-EPI)NonAf >90 (>60 ml/min/1.73 sqM) Glucose 123 H (74-99) mg/dL Plasma Lactic Acid Bob 1.8 (0.7-2.0) mmol/L Calcium 9.0 (8.4-10.2) mg/dL Magnesium 1.9 (1.6-2.3) mg/dL Total Bilirubin 0.4 (0.2-1.3) mg/dL AST 100 H (14-36) U/L ALT 88 H (4-34) U/L Alkaline Phosphatase 99 (38-126) U/L Total Protein 7.3 (6.3-8.2) g/dL Albumin 4.1 (3.5-5.0) g/dL Coronavirus (PCR) (Not Detectd) 01/17/21 Range/Units 11:47 WBC (3.8-10.6) k/uL RBC (3.80-5.40) m/uL Hgb (11.4-16.0) gm/dL Hct (34.0-46.0) % MCV (80.0-100.0) fL MCH (25.0-35.0) pg MCHC (31.0-37.0) g/dL RDW (11.5-15.5) % Plt Count (150-450) k/uL MPV Neutrophils % % Lymphocytes % % Monocytes % % Eosinophils % % Basophils % % Neutrophils # (1.3-7.7) k/uL Lymphocytes # (1.0-4.8) k/uL Monocytes # (0-1.0) k/uL Eosinophils # (0-0.7) k/uL Basophils # (0-0.2) k/uL Sodium (137-145) mmol/L Potassium (3.5-5.1) mmol/L Chloride (98-107) mmol/L Carbon Dioxide (22-30) mmol/L Anion Gap mmol/L BUN (7-17) mg/dL Creatinine (0.52-1.04) mg/dL Est GFR (CKD-EPI)AfAm (>60 ml/min/1.73 sqM) Est GFR (CKD-EPI)NonAf (>60 ml/min/1.73 sqM) Glucose (74-99) mg/dL Plasma Lactic Acid Bob (0.7-2.0) mmol/L Calcium (8.4-10.2) mg/dL Magnesium (1.6-2.3) mg/dL Total Bilirubin (0.2-1.3) mg/dL AST (14-36) U/L ALT (4-34) U/L Alkaline Phosphatase (38-126) U/L Total Protein (6.3-8.2) g/dL Albumin (3.5-5.0) g/dL Coronavirus (PCR) Detected A (Not Detectd) Disposition Clinical Impression: Hypokalemia, Dehydration, Pneumonia due to COVID-19 virus Disposition: HOME SELF-CARE Condition: Fair Instructions (If sedation given, give patient instructions): Hypokalemia (ED), Coronavirus Disease 2019 (COVID-19) Additional Instructions: Please continue to take vitamin C, zinc, vitamin D. Please take potassium supplement and steroid as prescribed. Please have your potassium level redrawn with her primary care physician in one to 2 weeks. Please return to emergency department with any worsening respiratory symptoms. Please continue to quarantine for an additional 10 days. Prescriptions: Dexamethasone [Decadron] 6 mg PO DAILY #10 tablet Potassium Chloride ER [K-Dur 20] 20 meq PO DAILY 7 Days #7 tab Is patient prescribed a controlled substance at d/c from ED?: No Referrals: Ac Latif DO [Primary Care Provider] - 1-2 days
[2021-01-17 12:10] LABS: ALT 88 U/L (4-34); AST 100 U/L (14-36); African American GFR (CKD) >90 (>60 ml/min/1.73 sqM); Albumin 4.1 g/dL (3.5-5.0); Alkaline Phosphatase 99 U/L (38-126); Anion Gap 8 mmol/L; Blood Urea Nitrogen 11 mg/dL (7-17); Carbon Dioxide 32 mmol/L (22-30); Chloride 101 mmol/L (98-107); Glucose 123 mg/dL (74-99); Magnesium 1.9 mg/dL (1.6-2.3); Non-African American GFR(CKD) >90 (>60 ml/min/1.73 sqM); Sodium 141 mmol/L (137-145); Total Bilirubin 0.4 mg/dL (0.2-1.3); Total Protein 7.3 g/dL (6.3-8.2)
[2021-01-17 12:17] LABS: Potassium 2.7 mmol/L (3.5-5.1)
[2021-01-17] MEDS ORDERED: POTASSIUM CHLORIDE ER 20 MEQ TAB.ER PO STA (12:23)
[2021-01-17 12:27] LABS: INR 0.9 (<1.2); Partial Thromboplastin Time 23.5 sec (22.0-30.0); Prothrombin Time 9.6 sec (9.0-12.0)
--- NOTE | 2021-01-17 12:37 | XR ---
EXAMINATION TYPE: XR chest 2V DATE OF EXAM: 01/17/2021 COMPARISON: NONE HISTORY: Cough and weakness for 9 days with Facet diarrhea. TECHNIQUE: Frontal and lateral views of the chest are obtained. FINDINGS: There are Multifocal areas of increased opacity in the mid to lower lungs bilaterally. No pleural effusion or pneumothorax seen. The cardiac silhouette size is within normal limits. Slight un derlying scoliotic curvature. Overlying EKG leads are present. IMPRESSION: Bilateral multifocal areas of increased opacity in the mid to lower lungs consistent wit h covid-19 infection.
[2021-01-17] MEDS ORDERED: DEXAMETHASONE SOD PHOSPHATE 10 MG/ML 1 ML VIAL IV STA (12:40)
[2021-01-17] MEDS: POTASSIUM CHLORIDE 10 MEQ in WATER FOR INJECTION 1 100ML.BAG IVPB SCH ×2 (12:45→14:49)
[2021-01-17 15:56] VITALS: BP 146/93; PULSE 80; RESP 18; TEMP 98.9
== END 2021-01-17 16:06 | disposition home or self-care (01) ==
LOC: EC 11:09
DX: U07.1 COVID-19 (principal); J12.82 Pneumonia due to coronavirus disease 2019; E03.9 Hypothyroidism, unspecified; E87.6 Hypokalemia; Z79.890 Hormone replacement therapy; Z79.899 Other long term (current) drug therapy; Z85.3 Personal history of malignant neoplasm of breast
CPT/HCPCS: 36415; 93005; 80053; 83605; 83735; 85025; 85610; 85730; 87635; 71046; 99285; 96365; 96366 ×2; 96375; 96361; J1100; J3480

== ENCOUNTER → 2021-03-05 | Outpatient (CLI) | payer OTHER ==
[2021-03-05 15:00] VITALS: BP 140/85; PULSE 87; RESP 18; TEMP 98.1
--- NOTE | 2021-03-05 15:58 | P.PN ---
Subjective Progress Note Date: 03/05/21 Principal diagnosis: BMI 28.2 Stage 1A right breast cancer surveillance right breast cancer Latia is a 60-year-old white female who is status post right breast lumpectomy with axillary node biopsy on 1818. This was Stage 1A T1 N0 M0 ER positive, [place] positive HER-2/isaías negative grade 1 breast cancer. There was an invasive ductal carcinoma. The patient finished her radiation therapy and started anastrozole. She is not complaining of any pain masses lumps or nodules in her breasts. She has no longer got any shooting pain in her breast. She has no other complaints at this time. Her Oncotype DX was 15 and she was told that she did not need any chemotherapy. The patient had a bilateral mammogram performed on which was benign BIRADS 2. The patient continues to take anastrozole with no complications. Patient notes she has asymmetry of the breast related to her prior right breast lumpectomy, making it difficult at times to find clothes to fit well. Dr. [place] [id number] reviewed Family History: negative Hormonal history: Menarche: 11 Pregnancies: 1, 1 child, age of 14, breast fed: Yes Menopause: 48 control pills: Negative Hormones: 3 months progesterone never used estrogen is now on anastrozole Past surgical history: Left breast lumpectomy with axillary node biopsy core biopsy of hte left bresat benign Past medical history hypothyroidism Social history: Smoking: Negative Alcohol: Negative Drugs: Negative Review of systems: HEENT: Negative Lungs:none Heart: Negative GI: Negative : Negative Musculoskeletal: Negative Psychiatric: Negative Breasts: As above Patient is on anastrozole Objective - Vital Signs Vital signs: Vital Signs Temp 98.1 F 03/05/21 14:31 Pulse 87 03/05/21 14:31 Resp 18 03/05/21 14:31 BP 140/85 03/05/21 14:31 Pulse Ox 99 03/05/21 14:31 Intake & Output 03/04/21 03/05/21 03/05/21 18:59 06:59 18:59 Weight 74.389 kg - Constitutional General appearance: Present: average body habitus - EENT Eyes: Present: EOMI ENT: Present: hearing grossly normal - Neck Neck: Present: normal ROM - Respiratory Respiratory: bilateral: CTA - Cardiovascular Rhythm: regular Heart sounds: normal: S1, S2 - Gastrointestinal General gastrointestinal: Present: soft - Integumentary Integumentary: Present: normal turgor - Musculoskeletal Musculoskeletal: Present: gait normal - Psychiatric Psychiatric: Present: A&O x's 3, appropriate affect, intact judgment & insight - Additional findings Additional findings: Breast Exam: BRA: 38EE inspection: grade 3 ptosis bilateral palpation: right breast: Surgical and radiation changes in the right breast, fibrocystic changes, multiple positional exam no evidence of recurrent cancer no lesions of concern Right axilla: No adenopathy of concern Left breast: Larger than right breast, multiple positional exam no dominant masses or nodules of concern fibrocystic changes Left axilla: No adenopathy of concern Assessment and Plan Assessment: Impression: 1. Patient status post right breast lumpectomy and sentinel node biopsy for a stage IA invasive ductal carcinoma, patient had radiation therapy and is on anastrozole she did not have chemotherapy Oncotype was 15 2. Patient without any concerns at this time related to her breast 3. Patient is not concerned about the asymmetry at this time Plan: 1. Repeat bilateral mammogram July 2021 2. Follow-up after mammogram 3. Patient continues to follow up with medical oncology Dr. Noguera CC: Dr. Latif
== END ==
LOC: WWCWWP 14:31
PROVIDERS: ATTEND Surgery
DX: C50.911 Malignant neoplasm of unspecified site of right female breast (principal); E03.9 Hypothyroidism, unspecified; N64.89 Other specified disorders of breast; Z17.0 Estrogen receptor positive status [ER+]; Z98.890 Other specified postprocedural states; Z92.3 Personal history of irradiation; Z79.811 Long term (current) use of aromatase inhibitors

== ENCOUNTER → 2021-07-06 | Outpatient (CLI) | payer OTHER ==
--- NOTE | 2021-07-06 14:14 | BD ---
EXAMINATION TYPE: Axial Bone Density DATE OF EXAM: 07/06/2021 COMPARISON: 07/04/2019 CLINICAL HISTORY: Postmenopausal female. Height: 63 IN Weight: 168 LBS RISK FACTORS HISTORY OF: Family History of Osteoporosis: YES MOTHER Active: YES Diet low in dairy products/other sources of calcium: YES Postmenopausal woman: AGE 48 MEDICATIONS: Thyroid Medications: YES Which medication: Levothyroxine How Lon+ YEARS Additional Medications: VIT D, LEVOTHYROXINE,ARIMIDEX, Additional History: BREAST CANCER WITH RADIATION EXAM MEASUREMENTS: Bone mineral densitometry was performed using the Trellise System. Bone mineral density as measured about the Lumbar spine is: ----- L1-L4(G/cm2): 1.351 T Score Values are as follows: ----- L2: 1.2 ----- L3: 2.7 ----- L4: 2.0 ----- L1-L4: 1.4 Bone mineral density has: Decreased -1.4% since study of: 07/04/2019 Bone mineral density about the R hip (g/cm2): 1.029 Bone mineral density about the L hip (g/cm2): 1.005 T Score values are as follows: -----R Neck: -0.1 -----L Neck: -0.2 -----R Total: 0.9 -----L Total: 0.7 Bone mineral density has: Decreased -2.2% since study of: 07/04/2019 IMPRESSION: Normal (Values between +1 and -1 indicate normal bone mass). Consider repeating this study in 5 year s or sooner if there is some new clinical indication. NOTE: T-SCORE=SD OF THE YOUNG ADULT MEAN.
== END | disposition home or self-care (01) ==
LOC: RADBDWWP 10:23
PROVIDERS: ATTEND Internal Medicine Hematology & Oncology
DX: C50.411 Malignant neoplasm of upper-outer quadrant of right female breast (principal); Z79.890 Hormone replacement therapy
CPT/HCPCS: 77080

== ENCOUNTER → 2021-07-14 | Outpatient (CLI) | payer OTHER ==
[2021-07-14 09:38] VITALS: BP 134/68; PULSE 58; RESP 12; TEMP 98.2
--- NOTE | 2021-07-14 10:29 | P.HPOB ---
History of Present Illness H&P Date: 07/14/21 Chief Complaint: The patient is here for her routine gynecologic exam. This is a 60-year-old with an LMP of 2009. The patient is without gynecologic complaints and denies any postmenopausal bleeding. Review of Systems The patient has gained 7 pounds over the last year. She denies respiratory, cardiac, or G.I. problems. Past Medical History Past Medical History: Cancer, Thyroid Disorder Additional Past Medical History / Comment(s): Right breast cancer 2018 status post lumpectomy and radiation therapy. Hypothyroidism. 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 History of Any Multi-Drug Resistant Organisms: None Reported Past Surgical History: Breast Surgery Additional Past Surgical History / Comment(s): Right breast lumpectomy 2018. Benign left breast biopsy. Colonoscopy 2019(next after 5yr). Past Anesthesia/Blood Transfusion Reactions: No Reported Reaction Additional Past Anesthesia/Blood Transfusion Reaction / Comment(s): takes along time to awaken from anesthesia Past Psychological History: No Psychological Hx Reported Smoking Status: Never smoker Past Alcohol Use History: Rare Past Drug Use History: None Reported Additional History: The patient is . She has been with her current partner since 2000 and they live together. She is sexually active. She does dog shows. - Past Family History Mother Family Medical History: No Reported History Additional Family Medical History / Comment(s): Heart disease. No family history of cancer of the breast, uterus, ovaries, or colon. Father Family Medical History: Hypertension Medications and Allergies Home Medications Medication Instructions Recorded Confirmed Type Ascorbic Acid [Vitamin C] 1,000 mg PO HS 09/06/18 07/14/21 History Cholecalciferol [Vitamin D3] 50 mcg PO DAILY 09/06/18 07/14/21 History Levothyroxine Sodium 112 mcg PO DAILY 09/06/18 07/14/21 History Anastrozole [Arimidex] 1 mg PO DAILY 01/10/19 07/14/21 History Multivitamins, Thera [Multivitamin 1 tab PO HS 01/17/21 07/14/21 History (formulary)] Potassium Chloride ER [K-Dur 20] 20 meq PO DAILY 7 Days #7 tab 01/17/21 07/14/21 Rx Allergies Allergy/AdvReac Type Severity Reaction Status Date / Time No Known Allergies Allergy Verified 07/14/21 09:24 Exam Vital Signs Temp Pulse Resp BP Pulse Ox 07/14/21 09:28 98.2 F 58 L 12 134/68 99 Intake and Output 07/13/21 07/14/21 07/14/21 22:59 06:59 14:59 Other: Weight 80.739 kg Height 5 feet 3 inches, weight 178 pounds, BMI 31.5. This is a well-developed well-nourished white female who is alert and oriented times 3 in no acute distress. HEENT: Within normal limits. NECK: Supple without mass or thyromegaly. CHEST AND LUNGS: Clear to auscultation. HEART: Regular rate and rhythm. BREASTS: Are without mass or discharge. There is a slightly dimpled area at the 10 o'clock position of the right breast consistent with her previous lumpectomy. AXILLARY EXAM: Negative for adenopathy. BACK: Negative for CVA tenderness. ABDOMEN: Soft, nontender, without palpable masses. PELVIC EXAM: Normal external genitalia with mild atrophy. Cervix and vagina appear normal with mild atrophy. There is no unusual discharge. There is no evidence of prolapse. The uterus is midposition, nongravid size and nontender. There are no palpable adnexal masses or tenderness. RECTAL EXAM: Rectovaginal exam is negative for mass or tenderness and is negative for occult blood. EXTREMITIES: Nontender. IMPRESSION: 1. 60-year-old menopausal female with normal gynecologic exam. 2. History of right breast cancer status post lumpectomy and radiation therapy with no evidence of recurrence at this time. PLAN: 1. Pap smear was deferred since she had a normal one on 06/30/2020. 2. Self breast awareness was discussed with the patient. We have also discussed symptoms associated with inflammatory breast cancer. 3. The patient is scheduled for a bilateral mammogram on 07/16/2021. The patient has an order slip for this from Dr. Pato Adame. 4. Osteoporosis prevention was discussed. I have stressed the importance of adequate calcium, vitamin D and regular exercise. Recommended amounts of calcium and vitamin D were also discussed. She had a bone density test done on 07/06/2021, which was sooner than what I had planned, which was normal. This was ordered by her oncologist because she is on Arimidex. 5. She did not have a Covid vaccination because she had Covid in December 2020. She understands that some recommend Covid vaccination for those who have had Covid. She has discussed this with her doctor and she has chosen to not get the Covid vaccination at this time. We have discussed how she may have higher immu nity if she does get the Covid vaccination. 6. She does not get flu shots. I have asked her to reconsider this especially since flu symptoms can be similar to Covid symptoms. 7. She was advised to return in one year for her annual well woman exam.
== END ==
LOC: WWCWWP 09:22
PROVIDERS: ATTEND Obstetrics & Gynecology
DX: Z53.9 Procedure and treatment not carried out, unspecified reason (principal)

== ENCOUNTER → 2021-07-16 | Outpatient (CLI) | payer OTHER ==
--- NOTE | 2021-07-19 08:04 | MM ---
Reason for exam: additional evaluation requested from prior study. Last mammogram was performed 1 year ago. History: Patient is postmenopausal and has history of breast cancer at age 57. Benign US biopsy breast VAD LT of the left breast, July 10, 2019. Malignant MG pre op needle loc RT of the right breast, October 09, 2018. Lumpectomy of the right breast, October 09, 2018. Physical Findings: Nurse did not find any significant physical abnormalities on exam. MG 3D Diag Mammo W/Cad ANGEL Bilateral CC and MLO view(s) were taken. Prior study comparison: July 14, 2020, bilateral MG 3d diag mammo w/cad ANGEL. July 10, 2019, left breast MG diagnostic mammo LT wo CAD. The breast tissue is heterogeneously dense. This may lower the sensitivity of mammography. Finding #1: Architectural distortion in the upper outer quadrant, posterior position of the right breast. Finding #2: There are typically benign round calcifications in both breasts. There is no discrete abnormality. These results were verbally communicated with the patient and result sheet given to the patient on 07/16/21. ASSESSMENT: Benign, BI-RAD 2 RECOMMENDATION: Follow-up diagnostic mammogram of both breasts in 1 year.
== END | disposition home or self-care (01) ==
LOC: RADMAMWWP 14:23
PROVIDERS: ATTEND Surgery
DX: Z08 Encounter for follow-up examination after completed treatment for malignant neoplasm (principal); Z85.3 Personal history of malignant neoplasm of breast
CPT/HCPCS: 77066; G0279; 77062

== ENCOUNTER → 2021-08-19 | Outpatient (CLI) | payer OTHER ==
[2021-08-19 09:20] VITALS: BP 133/84; PULSE 79; RESP 16; TEMP 98.2
--- NOTE | 2021-08-19 09:46 | P.PN ---
Subjective Progress Note Date: 08/19/21 Principal diagnosis: stage IA right breast cancer surveillance Stage 1A right breast cancer surveillance right breast cancer Latia is a 60-year-old white female who is status post right breast lumpectomy with axillary node biopsy on 1818. This was Stage 1A T1 N0 M0 ER positive, [place] positive HER-2/isaías negative grade 1 breast cancer. This was an invasive ductal carcinoma. The patient finished her radiation therapy and has been tolerating armidex. She is not complaining of any pain masses lumps or nodules in her breasts. She has no longer got any shooting pain in her breast. She has no other complaints at this time. Her Oncotype DX was 15 and she was told that she did not need any chemotherapy. The patient had a bilateral mammogram performed on 07-16-21 which was benign BIRADS 2. The patient continues to take arimidax with no complications. Patient notes she has asymmetry of the breast related to her prior right breast lumpectomy, making it difficult at times to find clothes to fit well. Dr. [place] [id number] reviewed Family History: negative Hormonal history: Menarche: 11 Pregnancies: 1, 1 child, age of 14, breast fed: Yes Menopause: 48 control pills: Negative Hormones: 3 months progesterone never used estrogen is now on anastrozole Past surgical history: Left breast lumpectomy with axillary node biopsy core biopsy of the left breast benign Past medical history hypothyroidism COVID pneumonia in December/ did not take the vaccine Social history: Smoking: Negative Alcohol: Negative Drugs: Negative Review of systems: HEENT: Negative Lungs:none Heart: Negative GI: Negative : Negative Musculoskeletal: Negative Psychiatric: Negative Breasts: As above Patient is on anastrozole Objective - Vital Signs Vital signs: Vital Signs Temp 98.2 F 08/19/21 09:16 Pulse 79 08/19/21 09:16 Resp 16 08/19/21 09:16 BP 133/84 08/19/21 09:16 Pulse Ox 98 08/19/21 09:16 Intake & Output 08/18/21 08/19/21 08/19/21 18:59 06:59 18:59 Weight 74.843 kg - Exam BMI 28.8 - Constitutional General appearance: Present: cooperative - EENT Eyes: Present: EOMI ENT: Present: hearing grossly normal - Neck Neck: Present: normal ROM - Respiratory Respiratory: bilateral: CTA - Cardiovascular Rhythm: regular Heart sounds: normal: S1, S2 - Gastrointestinal General gastrointestinal: Present: soft - Integumentary Integumentary: Present: normal turgor - Musculoskeletal Musculoskeletal: Present: gait normal - Psychiatric Psychiatric: Present: A&O x's 3, appropriate affect, intact judgment & insight - Additional findings Additional findings: Breast Exam: BRA: [id number] Inspection: Bilateral grade 2/3 ptosis; postoperative and postradiation changes right breast Palpation: Right breast: Multi-positional exam postop changes radiation and surgery no dominant masses or nodules of concern Right axilla: No adenopathy of concern Left breast: Multiple positional exam fibrocystic changes no dominant masses or nodules of concern Left axilla: No adenopathy of concern Assessment and Plan Assessment: Impression: stage IA invasive breast cancer; surveillance no evidence of cancer Plan: 1. repeat bilateral mammogram in 1 year 2. physician exam in 6 months Cc: Dr. Mahajan
== END | disposition home or self-care (01) ==
LOC: WWCWWP 08:57
PROVIDERS: ATTEND Surgery
DX: Z53.9 Procedure and treatment not carried out, unspecified reason (principal)

== ENCOUNTER → 2022-10-03 | Outpatient (CLI) | payer OTHER ==
--- NOTE | 2022-10-03 09:43 | MM ---
Reason for Exam: Additional evaluation requested from prior study. Last mammogram was performed 1 year(s) and 3 month(s) ago. Patient History: Menarche at age 10. First Full-Term at age 14. Postmenopausal. Patient has history of breast feeding. Breast cancer, right, age 57. Previous chest radiation therapy at age 57. 10/09/2018, Lumpectomy on the Right side. 07/10/2019, Benign Core Biopsy on the left side. 10/09/2018, Malignant Core Biopsy on the right side. Prior Study Comparison: 07/21/2018 Screening Mammogram, Unknown. 08/13/2018 Screening Mammogram, Unknown. 08/20/2018 Screening Mammogram, Unknown. 07/04/2019 Bilateral Diagnostic Mammogram, [facility]. 07/04/2019 Left Diagnostic Ultrasound, [facility]. 07/10/2019 Left Diagnostic Mammogram, [facility]. 07/14/2020 Bilateral Diagnostic Mammogram, [facility]. 07/16/2021 Bilateral Diagnostic Mammogram, [facility]. Tissue Density: The breast tissue is heterogeneously dense. This may lower the sensitivity of mammography. Findings: Analyzed By CAD. Postsurgical and posttreatment changes right breast. Microclip left breast from prior biopsy. Benign regional grouped punctate calcifications as well as a few scattered benign oil cyst calcifications are unchanged. Surgical scar with Biozorb device in place posterior upper outer quadrant right breast. Bilateral areas of scattered asymmetric densities remain unchanged. No significant change from prior exams. Overall Assessment: Benign, BI-RAD 2 Management: Screening Mammogram of both breasts in 1 year. 1. Patient should continue monthly self breast exams. 2. A clinical breast exam by your physician is recommended on an annual basis. 3. This exam should not preclude additional follow-up of suspicious palpable abnormalities. Results were given to the patient verbally at the time of exam. Electronically signed and approved by: Ruth Fernandez M.D. Radiologist
== END | disposition home or self-care (01) ==
LOC: RADMAMWWP 09:13
PROVIDERS: ATTEND Surgery
DX: Z85.3 Personal history of malignant neoplasm of breast (principal); Z78.0 Asymptomatic menopausal state; Z92.3 Personal history of irradiation
CPT/HCPCS: 77066; G0279; 77062

== ENCOUNTER → 2022-10-25 | Outpatient (CLI) | payer OTHER ==
[2022-10-25 09:29] VITALS: BP 148/86; PULSE 83; RESP 17; TEMP 98
--- NOTE | 2022-10-25 10:02 | P.HPOB ---
History of Present Illness H&P Date: 10/25/22 Chief Complaint: The patient is here for her routine gynecologic exam. This is a 61-year-old with an LMP of 2009. The patient is without gynecologic complaints and denies any postmenopausal bleeding. Review of Systems The patient has lost 9 pounds over the last year. She has been trying to lose weight. She denies respiratory, cardiac, or G.I. problems. Past Medical History Past Medical History: Cancer, Thyroid Disorder Additional Past Medical History / Comment(s): Right breast cancer 2018 status post lumpectomy and radiation therapy. Hypothyroidism. 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 History of Any Multi-Drug Resistant Organisms: None Reported Past Surgical History: Breast Surgery Additional Past Surgical History / Comment(s): Right breast lumpectomy 2018. Benign left breast biopsy. Colonoscopy 2019(next after 5yr). Past Anesthesia/Blood Transfusion Reactions: No Reported Reaction Additional Past Anesthesia/Blood Transfusion Reaction / Comment(s): takes along time to awaken from anesthesia Past Psychological History: No Psychological Hx Reported Smoking Status: Never smoker Past Alcohol Use History: None Reported Past Drug Use History: None Reported Additional History: The patient is . She has been with her current partner since 2000 and they live together. She is sexually active. She does dog shows and breeds dogs. - Past Family History Mother Family Medical History: No Reported History Additional Family Medical History / Comment(s): Heart disease. No family history of cancer of the breast, uterus, ovaries, or colon. Father Family Medical History: Hypertension Medications and Allergies Home Medications Medication Instructions Recorded Confirmed Type Ascorbic Acid [Vitamin C] 1,000 mg PO HS 09/06/18 10/25/22 History Cholecalciferol [Vitamin D3] 50 mcg PO DAILY 09/06/18 10/25/22 History Levothyroxine Sodium 112 mcg PO DAILY 09/06/18 10/25/22 History Anastrozole [Arimidex] 1 mg PO DAILY 01/10/19 10/25/22 History Multivitamins, Thera [Multivitamin 1 tab PO HS 01/17/21 10/25/22 History (formulary)] Zinc 50 mg PO DAILY 08/19/21 10/25/22 History Allergies Allergy/AdvReac Type Severity Reaction Status Date / Time No Known Allergies Allergy Verified 10/25/22 09:25 Exam Vital Signs Temp Pulse Resp BP Pulse Ox 10/25/22 09:26 98.0 F 83 17 148/86 98 Intake and Output 10/24/22 10/25/22 10/25/22 22:59 06:59 14:59 Other: Weight 76.657 kg Height 5 feet 4 inches, weight 169 pounds, BMI 29.0. This is a well-developed well-nourished white female who is alert and oriented times 3 in no acute distress. HEENT: Within normal limits. NECK: Supple without mass or thyromegaly. CHEST AND LUNGS: Clear to auscultation. HEART: Regular rate and rhythm. BREASTS: Are without mass or discharge. The right breast is consistent with previous lumpectomy in the upper outer quadrant. The right breast slightly firmer than the left breast consistent with previous lumpectomy and radiation therapy. AXILLARY EXAM: Negative for adenopathy. BACK: Negative for CVA tenderness. ABDOMEN: Soft, nontender, without palpable masses. PELVIC EXAM: Normal external genitalia with mild to moderate atrophy. Cervix and vagina appear normal mild atrophy. There is no unusual discharge. There is no evidence of prolapse. The uterus is midposition, nongravid size and nontender. There are no palpable adnexal masses or tenderness. RECTAL EXAM: Rectovaginal exam is negative for mass or tenderness and is negative for occult blood. EXTREMITIES: Nontender. IMPRESSION: 1. 61-year-old menopausal female with normal gynecologic exam. 2. History of right breast cancer status post lumpectomy and radiation therapy in 2019 with no evidence of recurrence on exam today. PLAN: 1. Pap smear cotest was performed. 2. Self breast awareness was discussed with the patient. We have also discussed symptoms associated with inflammatory breast cancer. 3. Bilateral diagnostic mammogram was benign on 10/03/2022. She will repeat this in 1 year. 4. Osteoporosis prevention was discussed. I have stressed the importance of adequate calcium, vitamin D and regular exercise. Recommended amounts of calcium and vitamin D were also discussed. She had a normal bone density test on 07/04/2019. We will plan on repeating this next year. 5. She was advised to return in one year for her annual well woman exam.
== END ==
LOC: WWCWWP 09:21
PROVIDERS: ATTEND Obstetrics & Gynecology
DX: Z01.411 Encounter for gynecological examination (general) (routine) with abnormal findings (principal); Z85.3 Personal history of malignant neoplasm of breast; E03.9 Hypothyroidism, unspecified; Z79.890 Hormone replacement therapy

== ENCOUNTER → 2023-10-04 | Outpatient (CLI) | payer OTHER ==
--- NOTE | 2023-10-05 13:46 | MM ---
Reason for Exam: Screening (asymptomatic). Last screening mammogram was performed 12 month(s) ago. Patient History: Menarche at age 10. First Full-Term at age 14. Postmenopausal. Patient has history of breast feeding. Breast cancer, right, age 57. Previous chest radiation therapy at age 57. 10/09/2018, Lumpectomy on the Right side. 07/10/2019, Benign Core Biopsy on the left side. 10/09/2018, Malignant Core Biopsy on the right side. Prior Study Comparison: 07/14/2020 Bilateral Diagnostic Mammogram, [facility]. 07/16/2021 Bilateral Diagnostic Mammogram, [facility]. 10/03/2022 Bilateral MG 3D diag mammo w/cad ANGEL, [facility]. Tissue Density: The breast tissue is heterogeneously dense. This may lower the sensitivity of mammography. Findings: Analyzed By CAD. Calcifications bilaterally which have a benign appearance. Left breast surgical clip. There is no suspicious group of microcalcifications or new suspicious mass. Overall Assessment: Benign, BI-RAD 2 Management: Screening Mammogram of both breasts in [address] [facility] will attempt to contact patient to return for supplemental views and ultrasound if indicated. Patient should continue monthly self-breast exams. A clinical breast exam by your physician is recommended on an annual basis. This exam should not preclude additional follow-up of suspicious palpable abnormalities. Note on Leila scores and lifetime risk: 1. A Leila score greater than 3% is considered moderate risk. If this is the case, consider specialist referral to assess eligibility for a risk reducing agent. 2. If overall lifetime risk for the development of breast cancer is 20% or higher, the patient may qualify for future screening with alternating mammogram and breast MRI. Electronically signed and approved by: Jean Carlos Chen DO
--- NOTE | 2023-10-05 23:58 | BD ---
EXAMINATION TYPE: Axial Bone Density DATE OF EXAM: 10/04/2023 CLINICAL HISTORY: 62 years old Female. ICD-10 CODE: M89.9 DISORDER OF BONE Height: 5 ft 4 in Weight: 163 FRAX RISK QUESTIONS: Alcohol (3 or more units per day): no Family History (Parent hip fracture): no Glucocorticoids (More than 3mos): no (Ex: prednisone, prednisolone, methylprednisolone, dexamethasone, and hydrocortisone). History of Fracture in Adulthood: no Secondary Osteoporosis: 1. Type 1 Diabetes: no 2. Hyperthyroidism: no 3. Menopause before 45: no 4. Malnutrition: no 5. Chronic liver disease: no Rheumatoid Arthritis: no Current Tobacco Use: no RISK FACTORS HISTORY OF: Surgery to Spine/Hip(right/left)/Wrist (right/left): no Family History of Osteoporosis: yes Active: yes Diet low in dairy products/other sources of calcium: no Postmenopausal woman: yes Take estrogen and/or progesterone medications: no Lost more than 2 inches in height since high school: no Frequent falls: no Poor Health: good Hyperparathyroidism: no Adrenal Insufficiency: no MEDICATIONS: Thyroid Medications: yes Which medication: levothyroxine How Lon plus years Additional Medications: levothyroxine, anastrazole Additional History: breast cancer 2018 radiation EXAM MEASUREMENTS: Bone mineral densitometry was performed using the ASSET4 System. Bone mineral density as measured about the Lumbar spine is: ----- L1-L4(G/cm2): 1.413 T Score Values are as follows: ----- L1: -0.4 ----- L2: 2.5 ----- L3: 3.9 ----- L4: 1.6 ----- L1-L4: 1.9 Z Score Values are as follows: ----- L1: 0.9 ----- L2: 3.7 ----- L3: 5.2 ----- L4: 2.9 ----- L1-L4: 3.2 Bone mineral density has: decreased -3.0 % since study of: 2020 Bone mineral density about the R hip (g/cm2): 1.042 Bone mineral density about the L hip (g/cm2): 1.001 T Score values are as follows: -----R Neck: 0.0 -----L Neck: -0.3 -----R Total: 0.8 -----L Total: 0.6 Z Score values are as follows: -----R Neck: 1.3 -----L Neck: 1.0 -----R Total: 1.8 -----L Total: 1.5 Bone mineral density has: decreased -0.7 % since study of: 2020 FRAX%s: The graph provided illustrates a 6.8 % chance for a major osteoporotic fx and a 0.3 % chance for the hips probability for fx in 10 years time. IMPRESSION: Normal (Values between +1 and -1 indicate normal bone mass). Consider repeating this study in 5 year s or sooner if there is some new clinical indication. NOTE: T-SCORE=SD OF THE YOUNG ADULT MEAN.
== END | disposition home or self-care (01) ==
LOC: RADMAMWWP 09:06
PROVIDERS: ATTEND Internal Medicine Hematology & Oncology
DX: Z12.31 Encounter for screening mammogram for malignant neoplasm of breast (principal); M89.9 Disorder of bone, unspecified; Z78.0 Asymptomatic menopausal state; Z85.3 Personal history of malignant neoplasm of breast
CPT/HCPCS: 77063; 77067; 77080

== ENCOUNTER → 2024-01-16 | Outpatient (CLI) | payer OTHER ==
[2024-01-16 11:45] VITALS: BP 165/95; PULSE 80; RESP 17; TEMP 98.3
--- NOTE | 2024-01-16 12:38 | P.HPOB ---
History of Present Illness H&P Date: 01/16/24 Chief Complaint: Patient is here for her routine gynecologic exam This is a 63-year-old G1, P1 with an LMP of 2009. The patient is without gynecologic complaints. Review of Systems The patient has lost 4 pounds over the last year. She denies respiratory, cardiac, or G.I. problems. Past Medical History Past Medical History: Cancer, Thyroid Disorder Additional Past Medical History / Comment(s): Right breast cancer (stage 1A, ER+) 2018 status post lumpectomy and radiation therapy. 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 History of Any Multi-Drug Resistant Organisms: None Reported Past Surgical History: Breast Surgery Additional Past Surgical History / Comment(s): Right breast lumpectomy 2018. Benign left breast biopsy. Colonoscopy 2019(next after 5yr). Past Anesthesia/Blood Transfusion Reactions: No Reported Reaction Additional Past Anesthesia/Blood Transfusion Reaction / Comment(s): takes along time to awaken from anesthesia Past Psychological History: No Psychological Hx Reported Smoking Status: Never smoker Past Alcohol Use History: None Reported Past Drug Use History: None Reported Additional History: The patient is . She has been with her current boyfriend since 2000 and they live together. She is sexually active. She does dog shows and breeds dogs. - Past Family History Mother Family Medical History: No Reported History Additional Family Medical History / Comment(s): Heart disease. No family history of cancer of the breast, uterus, ovaries, or colon. Father Family Medical History: Hypertension Medications and Allergies Home Medications Medication Instructions Recorded Confirmed Type Ascorbic Acid [Vitamin C] 1,000 mg PO HS 09/06/18 01/16/24 History Cholecalciferol [Vitamin D3] 50 mcg PO DAILY 09/06/18 01/16/24 History Levothyroxine Sodium 112 mcg PO DAILY 09/06/18 01/16/24 History Anastrozole [Arimidex] 1 mg PO DAILY 01/10/19 01/16/24 History Multivitamins, Thera [Multivitamin 1 tab PO HS 01/17/21 01/16/24 History (formulary)] Allergies Allergy/AdvReac Type Severity Reaction Status Date / Time No Known Allergies Allergy Verified 01/16/24 11:30 Exam Vital Signs Temp Pulse Resp BP Pulse Ox 01/16/24 11:30 98.3 F 80 17 165/95 98 Intake and Output 01/15/24 01/16/24 01/16/24 22:59 06:59 14:59 Other: Weight 74.843 kg Height 5 feet 4 inches, weight 165 pounds, BMI 28.3 This is a well-developed well-nourished white female who is alert and oriented times 3 in no acute distress. HEENT: Within normal limits. NECK: Supple without mass or thyromegaly. CHEST AND LUNGS: Clear to auscultation. HEART: Regular rate and rhythm. BREASTS: Are without mass or discharge. The right breast is consistent with a previous right breast lateral lumpectomy she is well-healed without palpable masses. AXILLARY EXAM: Negative for adenopathy. BACK: Negative for CVA tenderness. ABDOMEN: Soft, nontender, without palpable masses. PELVIC EXAM: Normal external genitalia with mild atrophy. Cervix and vagina appear normal with mild atrophy. There is no unusual discharge. There is no evidence of prolapse. The uterus is midposition, nongravid size and nontender. There are no palpable adnexal masses or tenderness. RECTAL EXAM: Rectovaginal exam is negative for mass or tenderness and is negative for occult blood. EXTREMITIES: Nontender. IMPRESSION: 1. 63-year-old menopausal female with normal gynecologic exam. 2. Previous right lumpectomy with radiation therapy for right breast cancer in 2019. There is no evidence of recurrence on exam today. 3. Elevated blood pressure. Elevated blood pressure. PLAN: 1. Pap smear was deferred since she had a negative Pap smear cotest on 10/25/2022. 2. Self breast awareness was discussed with the patient. We have also discussed symptoms associated with inflammatory breast cancer. 3. Screening mammogram was last done on 10/04/2023 and was benign. She will repeat this after 1 year. 4. Her blood pressure was discussed. I recommended that she check her own blood pressures on a regular basis since she does have a blood pressure cuff. Follow-up with her PCP for blood pressure elevations. 5. Osteoporosis prevention was discussed. I have stressed the importance of adequate calcium, vitamin D and regular exercise. Recommended amounts of calcium and vitamin D were also discussed. Bone density test was done on 10/04/2023 and was normal. 6. She was advised to return in one year for her annual well woman exam.
== END ==
LOC: WWCWWP 11:06
PROVIDERS: ATTEND Obstetrics & Gynecology
DX: Z01.419 Encounter for gynecological examination (general) (routine) without abnormal findings (principal); R03.0 Elevated blood-pressure reading, without diagnosis of hypertension; Z98.890 Other specified postprocedural states; Z85.3 Personal history of malignant neoplasm of breast; Z48.817 Encounter for surgical aftercare following surgery on the skin and subcutaneous tissue; Z92.3 Personal history of irradiation

== ENCOUNTER → 2025-01-21 | Outpatient (CLI) | payer MEDICARE, OTHER ==
[2025-01-21 11:19] VITALS: BP 138/92; PULSE 86; RESP 16; TEMP 96.6
--- NOTE | 2025-01-21 11:53 | P.HPOB ---
History of Present Illness H&P Date: 01/21/25 Chief Complaint: The patient is here for her routine gynecologic exam and ma mmogram. This is a 64-year-old G1, P1 with an LMP of 2008. The patient is without gynecologic complaints. Review of Systems The patient has gained 5 pounds over the last year. She denies respiratory, cardiac, or G.I. problems. Past Medical History Past Medical History: Cancer, Thyroid Disorder Additional Past Medical History / Comment(s): Right breast cancer (stage 1A, ER+) 2018 status post lumpectomy and radiation therapy. Hypothyroidism. 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 History of Any Multi-Drug Resistant Organisms: None Reported Past Surgical History: Breast Surgery Additional Past Surgical History / Comment(s): Right breast lumpectomy 2018. Benign left breast biopsy. Colonoscopy 2019(next after 5yr). Past Anesthesia/Blood Transfusion Reactions: No Reported Reaction Additional Past Anesthesia/Blood Transfusion Reaction / Comment(s): takes along time to awaken from anesthesia Past Psychological History: No Psychological Hx Reported Smoking Status: Never smoker Past Alcohol Use History: None Reported Past Drug Use History: None Reported Additional History: The patient is . She has been with her current boyfriend since 2000 and they live together. She is sexually active. She breeds and shows dogs. - Past Family History Mother Family Medical History: Congestive Heart Failure (CHF) Additional Family Medical History / Comment(s): Heart disease. No family history of cancer of the breast, uterus, ovaries, or colon. Father Family Medical History: Hypertension Medications and Allergies Home Medications Medication Instructions Recorded Confirmed Type Ascorbic Acid [Vitamin C] 1,000 mg PO HS 09/06/18 01/21/25 History Cholecalciferol [Vitamin D3] 50 mcg PO DAILY 09/06/18 01/21/25 History Levothyroxine Sodium 112 mcg PO DAILY 09/06/18 01/21/25 History Anastrozole [Arimidex] 1 mg PO DAILY 01/10/19 01/21/25 History Multivitamins, Thera [Multivitamin 1 tab PO HS 01/17/21 01/21/25 History (formulary)] Allergies Allergy/AdvReac Type Severity Reaction Status Date / Time No Known Allergies Allergy Verified 01/21/25 11:09 Exam Vital Signs Temp Pulse Resp BP Pulse Ox 01/21/25 11:10 96.6 F L 86 16 138/92 96 Intake and Output 01/20/25 01/21/25 01/21/25 22:59 06:59 14:59 Other: Weight 77.111 kg Height 5 feet 3 inches, weight 170 pounds, BMI 30.1. This is a well-developed well-nourished white female who is alert and oriented times 3 in no acute distress. HEENT: Within normal limits. NECK: Supple without mass or thyromegaly. CHEST AND LUNGS: Clear to auscultation. HEART: Regular rate and rhythm. BREASTS: Are without mass or discharge. There is a dimpled area and scar at the upper outer quadrant of the right breast, consistent with her previous lumpectomy. AXILLARY EXAM: Negative for adenopathy. BACK: Negative for CVA tenderness. ABDOMEN: Soft, nontender, without palpable masses. PELVIC EXAM: Normal external genitalia with moderate atrophy. Cervix and vagina appear normal with mild atrophy. There is no unusual discharge. There is no evidence of prolapse. The uterus is midposition, nongravid size and nontender. There are no palpable adnexal masses or tenderness. RECTAL EXAM: Rectovaginal exam is negative for mass or tenderness and is negative for occult blood. EXTREMITIES: Nontender. IMPRESSION: 1. 64-year-old menopausal female normal gynecologic exam. 2. History of right breast cancer in 2019 status post lumpectomy with radiation therapy, with no evidence of recurrence on exam today. PLAN: 1. Pap smear was deferred since she had a negative Pap smear cotest on 10/25/2022. This will be repeated around 2027 and if that is negative, we will plan on discontinuing Pap smears. 2. Self breast awareness was discussed with the patient. We have also discussed symptoms associated with inflammatory breast cancer. 3. Screening mammogram will be done today. 4. Osteoporosis prevention was discussed. I have stressed the importance of adequate calcium, vitamin D and regular exercise. Recommended amounts of calcium and vitamin D were also discussed. She had a normal bone density test on 10/04/2023. This will be repeated after 4 to 5 years, or when her oncologist that prescribes her Arimidex feels that should be done 5. She was advised to return in one year for her annual well woman exam.
--- NOTE | 2025-01-22 14:54 | MM ---
Reason for Exam: Screening (asymptomatic). Last mammogram was performed 1 year(s) and 3 month(s) ago. Patient History: Menarche at age 10. First Full-Term at age 14. Postmenopausal. Patient has history of breast feeding. Breast cancer, right, age 57. Previous chest radiation therapy at age 57. 10/09/2018, Lumpectomy on the Right side. 07/10/2019, Benign Core Biopsy on the left side. 10/09/2018, Malignant Core Biopsy on the right side. Prior Study Comparison: 07/16/2021 Bilateral Diagnostic Mammogram, [facility]. 10/03/2022 Bilateral MG 3D diag mammo w/cad [facility], [facility]. 10/04/2023 Bilateral MG 3D screening mammo w/cad, [facility]. Tissue Density: The breasts are heterogeneously dense, which may obscure small masses. Findings: Analyzed By CAD. Lumpectomy change upper outer right breast. Postoperative distortion. No recurrent mass or suspicious microcalcifications within either breast. No left-sided breast mass seen. Overall Assessment: Benign, BI-RAD 2 Management: Screening Mammogram of both breasts in 1 year. . Patient should continue monthly self-breast exams. A clinical breast exam by your physician is recommended on an annual basis. This exam should not preclude additional follow-up of suspicious palpable abnormalities. Note on Leila scores and lifetime risk: 1. A Leila score greater than 3% is considered moderate risk. If this is the case, consider specialist referral to assess eligibility for a risk reducing agent. 2. If overall lifetime risk for the development of breast cancer is 20% or higher, the patient may qualify for future screening with alternating mammogram and breast MRI. [facility], , 01/21/2025 12:24 PM. Electronically signed and approved by: Darwin Marshall M.D. Radiologis
== END ==
LOC: WWCWWP 10:52
PROVIDERS: ATTEND Obstetrics & Gynecology
DX: Z01.419 Encounter for gynecological examination (general) (routine) without abnormal findings (principal); Z12.31 Encounter for screening mammogram for malignant neoplasm of breast; Z78.0 Asymptomatic menopausal state; Z85.3 Personal history of malignant neoplasm of breast; Z98.890 Other specified postprocedural states; Z92.3 Personal history of irradiation
CPT/HCPCS: 77063; 77067